=== PATIENT | male | born 1955 | race African-American/Black ===

== ENCOUNTER 2017-01-22 22:48 | Day surgery (SDC) | payer MEDICARE ==
[2017-01-23] MEDS ORDERED: Fentanyl 100 MCG/2 ML VIAL ONE (03:55)
[2017-01-23] MEDS ORDERED: Propofol 200 MG/20 ML VIAL ONE (04:08)
--- NOTE | 2017-01-23 05:02 | OP ---
DATE OF PROCEDURE: 01/23/2017 PROCEDURE: Esophagogastroduodenoscopy with removal of foreign body and biopsy and esophageal balloo n dilation. PREOPERATIVE DIAGNOSIS: Esophageal foreign body. OPERATIVE NOTE: Informed consent was obtained from the patient. He was sedated with total intraven ous anesthesia. The bite block was placed and the endoscope was advanced easily to the second porti on of the duodenum and retroflexion was performed in the stomach, had an impaction of meat in the di stal esophagus. Gentle pressure was applied with the scope and a bolus could be advanced into the s tomach. The esophagus had a stricture at the Z-line. This was dilated to 18 mm with a balloon dila tor. There was a shallow tear at the dilation site. There was an 8 to 9 mm ulcer few millimeters a brandy the stricture. This ulcer was biopsied to rule out a squamous cell carcinoma; however, it appe ars just be an ulcer. The stomach was normal including retroflexed views. The pylorus and first an d second portions of the duodenum were normal. IMPRESSION: 1. Esophageal food impaction advanced into the stomach with the endoscope. 2. Esophageal stricture dilated to 18 mm with a balloon. There was a shallow tear at the dilation site. 3. An 8 mm ulcer few millimeters above the stricture. This was biopsied to rule out squamous cell carcinoma. RECOMMENDATIONS: 1. Await histopathology. 2. Start omeprazole 20 mg daily. 3. Follow up in the office in 4 weeks.
--- NOTE | 2017-01-23 13:22 | CON ---
DATE OF CONSULTATION: 01/23/2017 GASTROENTEROLOGY ER CONSULTATION CHIEF COMPLAINT: Food stuck in my esophagus. HISTORY OF PRESENT ILLNESS: Mr. Hoffmann is a 61-year-old man who ate steak around 08:45 on the ev ening of 01/22/2017. The food got stuck in his esophagus and he is unable to tolerate his secretion s since then and he spits them onto a bag. He has had no chest pain or shortness of breath otherwis e. No abdominal pain, nausea, vomiting, diarrhea, constipation or blood in the stool. He gets dysp hagia occasionally around once every 6 months with which he can drink fluids to wash the bolus down. He has never had a food impaction like this. PAST MEDICAL HISTORY: Diabetes mellitus on insulin and Pompe disease, for which he has a home venti lator for respiratory weakness. PAST SURGICAL HISTORY: Tracheostomy is in place. FAMILY HISTORY: Negative for GI malignancies. SOCIAL HISTORY: No alcohol, tobacco or drugs. ALLERGIES: BACTRIM. MEDICATIONS AT HOME: Insulin. REVIEW OF SYSTEMS: Negative x10 systems reviewed except as stated in the history of present illness . PHYSICAL EXAMINATION: GENERAL: He is in no acute distress. He is awake and alert. EYES: Have no scleral icterus. OROPHARYNX: Clear without lesions. NECK: No cervical or supraclavicular lymphadenopathy. LUNGS: Have bilateral expiratory wheezes. HEART: Regular rate and rhythm. ABDOMEN: Soft, nontender, and nondistended. Bowel sounds are present. EXTREMITIES: No lower extremity edema. He has a tracheostomy in place with use of home ventilator. IMPRESSION: 1. Esophageal food impaction. 2. Pompe disease with muscle weakness. He has associated chronic respiratory failure with a trache ostomy in place and home ventilator use. PLAN: 1. EGD. 2. Start proton pump inhibitor daily.
--- OUTSIDE RECORDS SUMMARY | 2017-01-27 23:07 | XMS ---
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
--- OUTSIDE RECORDS SUMMARY | 2017-01-27 23:07 | XMS ---
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
--- OUTSIDE RECORDS SUMMARY | 2017-01-27 23:07 | XMS | Summary of Care ---
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 Refills:0 Active GlipiZIDE 5 MG Oral Tablet TAKE 1 TABLET TWICE DAILY. Refills:0 Active Albuterol Sulfate NEBU Refills:0 Active Lisinopril 5 MG Oral Tablet TAKE 1 TABLET DAILY DIRECTED. Quantity:30 Refills:5 BANSALM.D., MALLORIE Start :23-Jan-2014 Active Ipratropium-Albuterol 0.5-2.5 (3) MG/3ML Inhalation Solution Refills:0 Active Allergies and Adverse Reactions Name Dates Details Bactrim DS TABS(Allergy) Status:Active Procedures Procedure Dates Details [QLH] CBC (INCLUDES DIFF/PLT) Date:17-Dec-2016 [Q] CK-MB Date:17-Dec-2016 [QLH] PREALBUMIN Date:17-Dec-2016 [QLH] VITAMIN D, 1,25 DIHYDROXY LC/MS/MS Date:17-Dec-2016 [Q] PTH, INTACT (ICMA) AND IONIZED CALCIUM Date:17-Dec-2016 [QLH] PHOSPHATE ( PHOSPHORUS) Date:17-Dec-2016 [QLH] B TYPE NATRIURETIC PEPTIDE (BNP) Date:17-Dec-2016 [QLH] CMP W/EGFR Date:17-Dec-2016 [QLH] CREATINE KINASE, TOTAL Date:17-Dec-2016 [QLH] AMINO ACID ANALYSIS, LC/MS, PLASMA Date:17-Dec-2016 [QLH] VITAMIN D, 25-HYDROXY, LC/MS/MS Date:17-Dec-2016 [QLH] MAGNESIUM Date:17-Dec-2016 [QL] CARNITINE, LC/MS/MS Date:17-Dec-2016 Immunization Name Dates Details Immunizations not documented Social History Name Dates Details - Status: Name Dates Details Never smoker Vital Signs Date Test Result Details [id number] BP Systolic 146mm[Hg] Status:Comments:Location: [facility]; Position: Sitting BP Diastolic 83mm[Hg] Status:Comments:Location: [facility]; Position: Sitting Height 177.8cm Status: Weight 89.81kg Status: Body Mass Index Calculated 28.41kg/m2 Status: Body Surface Area Calculated 2.08m2 Status: Heart Rate 90/min Status:Comments:Location: [facility]; Results Date Description Value Details Results not documented Plan of Care Name Dates Details Planned Observations Planned Goals not documented Instructions Name Dates Details Instructions not documented Encounters Appointment; HOLDEN JULIO M.D. On:14-Aug-2015 9:30 Encounter Diagnosis:Problem not documented Appointment; YUNG GOMEZ M.D. On:15-Oct-2015 10:00 Encounter Diagnosis:Problem not documented Appointment; YUNG GOMEZ M.D. On:17-Dec-2015 10:00 Encounter Diagnosis:Problem not documented Appointment; YUNG GOMEZ M.D. On:22-Dec-2016 10:30 Encounter Diagnosis:Problem not documented
--- OUTSIDE RECORDS SUMMARY | 2017-01-27 23:07 | XMS | Summary of Care ---
:1955 Author Name Karma Terry Address Unavailable Unavailable , Care Team Providers Name Role Phone Harrison, Karma Unavailable Unavailable YUNG GOMEZ Unavailable Unavailable SONIA, MALLORIE Unavailable [...] 0.5-2.5 (3) MG/3ML Inhalation Solution Refills:0 Active Vitamin D3 92345 UNIT Oral Capsule Give one capsule by mouth, once a week for six weeks and then maintenance dosages of 2000 iu qday Quantity:6 Refills:11 YUNG BEAUCHAMP Start :29-Dec-2016 Active Allergies and Adverse Reactions Name Dates [...] smoker Vital Signs Date Test Result Details [id number] BP Systolic 146mm[Hg] Status:Comments:Location: [facility]; Position: Sitting BP Diastolic 83mm[Hg] Status:Comments:Location: [facility]; Position: Sitting Height 177.8cm Status: Weight 89.81kg Status: Body Mass Index Calculated 28.41kg/m2 Status: Body Surface Area Calculated 2.08m2 Status: Heart Rate 90/min Status:Comments:Location: [facility]; Results Date Description Value Details [id number] [QLH] CALCIUM, IONIZED Ca Ion Serum 1.25 mmol/L Range:1.00-1.38 Ca Norm Serum 1.22 mmol/L Range:1.00-1.38 [id number] [QLH] CBC (INCLUDES DIFF/PLT) WBC 7.6 {K/CMM} Range:3.7-10.4 RBC 5.26 {M/CMM} Range:4.70-6.10 Hgb 14.2 g/dl Range:14.0-18.0 Hct 43.0 % Range:42.0-54.0 MCV 81.8 fL Range:80.0-94.0 MCH 27.1 pg Range:27.0-31.0 MCHC 33.1 g/dl Range:32.0-36.0 RDW 15.8 % (Above high threshold) Range:11.5-14.5 Platelet 236 {K/CMM} Range:133-450 Mean Platelet Volume 9.6 fL Range:7.4-10.4 :31 [QLH] Differential Segmented Neutrophils 72.1 % Range:45.0-75.0 Monocytes 5.4 % Range:2.0-12.0 Lymphocytes 20.9 % Range:20.0-40.0 Eosinophils 1.0 % Range:0.0-4.0 Basophils 0.6 % Range:0.0-1.0 Segs-Bands # 5.5 {K/CMM} Range:1.5-8.1 Lymphocytes # 1.6 {K/CMM} Range:1.0-5.5 Monocytes # 0.4 {K/CMM} Range:0.0-0.8 Eosinophils # 0.1 {K/CMM} Range:0.0-0.5 [id number] [[facility]] CMP W/EGFR Sodium Level 137 {mEq/l} Range:135-145 Potassium Level 4.3 {mEq/l} Range:3.5-5.1 Chloride Level 103 {mEq/l} Range:95-109 Carbon Dioxide 26 {mEq/l} Range:24-32 AGAP 12.3 {mEq/l} Range:10.0-20.0 Glucose Lvl 273 mg/dl (Above high Range:70-99 threshold) Comments:Adult reference range values reflect the clinical guidelinesof the [place] [employer] Association. Creatinine Lvl 0.90 mg/dl Range:0.50-1.40 Blood Urea Nitrogen 14 mg/dl Range:7-22 BUN/Creatinine Ratio 16 Range:6-25 Total Protein 8.6 g/dl (Above high Range:6.4-8.4 threshold) Albumin Lvl 4.1 g/dl Range:3.5-5.0 Globulin 4.5 g/dl (Above high Range:2.7-4.2 threshold) A/G Ratio 0.9 Range:0.7-1.6 Calcium Level Total 9.4 mg/dl Range:8.5-10.5 ALT 34 u/l Range:0-65 AST 29 u/l Range:0-37 Alk Phos 98 u/l Range:39-136 Bili Total 0.4 mg/dl Range:0.2-1.3 eGFR 107 {ML/MIN/1.7} Comments:The eGFR is calculated using the CKD-EPI formula. In most young, healthyindividuals the eGFR will be >90 mL/min/1.73m2. The eGFR declines with age. AneGFR of 60-89 may be normal in some populations , particularly the elderly, forwhom the CKD-EPI formula has not been extensively validated. Use of the eGFR isnot recommended in the following populations:Individuals with unstable creatinine concentr ations, including patients and those with serious co-morbid conditions.Patients with extremes in muscle mass or diet.The data above are obtained from the National Kidney Disease Education Prog manuel(NKDEP) which additionally recommends that when the eGFR is used in patientswith extremes of body mass index for purposes of drug dosing, the eGFR shouldbe multiplied by the estimated BMI. [QLH] CREATINE KINASE, TOTAL Creatine Kinase 530 u/l (Above high threshold) Range:12-191 [QLH] MAGNESIUM Magnesium Level 2.2 mg/dl Range:1.8-2.4 [QLH] PHOSPHATE ( PHOSPHORUS) Phosphorus Level 2.2 mg/dl (Below low threshold) Range:2.5-4.5 [H] CK-MB Isoenzyme Creatine Kinase MB 10.9 ng/ml (Above high threshold) Range:0.5-3.6 [LH] CK-MB Index Creatine Kinase MB Index 2.1 Range:0.0-2.5 [QLH] PREALBUMIN Prealbumin 21.0 mg/dl Range:18.0-45.0 [QLH] PTH, INTACT (WITHOUT CALCIUM) Parathyroid Hormone Intact 89.8 pg/ml (Above high threshold) Range:11.1- 79.5 [QLH] B TYPE NATRIURETIC PEPTIDE (BNP) Natriuretic Peptide <2 pg/ml Range:<=100 Comments:Elevated results are in line with increasing severity ofcongestive heart failure. Minor elevations between 100 and 300may be seen with Myocardial Ischemia, Sodium retaining drugs,and compensated/treated heart failure. [QLH] VITAMIN D, 25-HYDROXY, LC/MS/MS Vitamin D, 25-OH, 12.8 ng/ml (Below low Range:30.0-100.0 Total threshold) Comments:Reference range is based on recommendations in the EndocrineSociety Clinical Practice Guideline (J Clin Endocrinol Oikvn0605;96 :6926-5641) [id number] [QLH] VITAMIN D, 1,25 DIHYDROXY LC/MS/MS Vitamin D 1,25 (OH)2 Total 76 pg/ml Comments:Reference Range:Adults: 21 - 65 Vitamin D2 1,25 (OH)2 59 pg/ml Vitamin D3 1,25 (OH)2 17 pg/ml Comments:Performed At: [facility] [address] [place] [id number] Samuel H MD Ph:[phone] [id number] [H] Amino Acids Plasma Taurine AA 162.0 umol/L (Above high Range:29.2-132.3 threshold) Aspartate 5.0 umol/L Range:0.9-7.4 Hydroxyproline 24.5 umol/L Range:4.7-35.2 Threonine 97.8 umol/L Range:67.8-211.6 Serine 93.6 umol/L Range:48.7-145.2 Asparagine 40.7 umol/L Range:29.5-84.5 Glutamic Acid 148.4 umol/L Range:18.1-155.9 Glutamine 420.1 umol/L Range:332.0-754.0 Sarcosine 1.1 umol/L Range:0.0-4.0 Alpha-Amino Adipic Acid 1.4 umol/L Range:0.0-2.2 Proline 199.5 umol/L Range:84.8-352.5 Glycine Amino Acid 197.5 umol/L Range:132.0-467.0 Alanine 361.5 umol/L Range:124.8-564.2 Citrulline Amino Acid 31.0 umol/L Range:13.7-63.2 Alpha-Amino Butyric Acid 21.1 umol/L Range:5.4-34.5 Valine AA 219.3 umol/L Range:102.6-345.4 Cystine 32.8 umol/L Range:13.5-60.2 Methionine 23.8 umol/L Range:12.7-41.1 Homocitrulline <0.5 umol/L Range:0.0-1.7 Cystathionine 0.2 umol/L Range:0.0-0.7 Allo-isoleucine 1.7 umol/L Range:0.4-3.2 Isoleucine 55.0 umol/L Range:27.7-112.8 Leucine 109.5 umol/L Range:54.9-205.0 Tyrosine Amino Acid 48.2 umol/L Range:31.1-118.1 Phenylalanine 56.5 umol/L Range:33.6-101.9 Arginosuccin 0.1 umol/L Range:0.0-3.0 Beta-alanine 5.6 umol/L Range:1.1-9.0 Beta-Amino Isobutyric Acid 2.3 umol/L Range:0.3-4.3 Homocystine <0.1 umol/L Range:0.0-0.1 Gamma-Amino Butyric Acid <0.4 umol/L Range:0.0-0.3 Tryptophan 35.6 umol/L Range:23.5-93.0 Hydroxylysine 0.2 umol/L Range:0.1-0.8 Ornithine 60.8 umol/L Range:30.5-131.4 Lysine 205.4 umol/L Range:94.0-278.0 Histidine 66.1 umol/L Range:47.2-98.5 Arginine 70.2 umol/L Range:32.0-150.0 AA Interp Comment Comments:No evidence of aminoacidopathy by quantitative plasma aminoacid analysis. Director Review (AA Plasma) Comment Comments:Tia Ga, PhD, FACMGDirector, Biochemical and Molecular GeneticsTo discuss these results or other testing for inborn errorsof metabolism, please contact our Biochemical Geneticistsat [phone]), [facility] Customer Service,[place], [place]. Methodology (AA Plasma) Comment Comments:Amino acid concentrations were obtained by LC-MS/MSanalysis.Performed At: [facility] [id number] [place], [place] [id number] Crystal MD Ph:[phone] At: [facility] [id number] [place], [place] [id number] Avilez MD Ph: [phone] Plan of Care Name Dates Details Planned Observations Planned Goals not documented Planned Encounters Appointment; YUNG GOMEZ M.D. On:21-Dec-2017 9:00 Interventions Provided Medication ChangesVitamin D3 02154 UNIT Oral Capsule - Start Instructions Name Dates Details Instructions not documented Encounters Appointment; HOLDEN JULIO M.D. On:14-Aug-2015 9:30 Encounter Diagnosis:Problem not documented Appointment; YUNG GOMEZ M.D. On:15-Oct-2015 10:00 Encounter Diagnosis:Problem not documented Appointment; YUNG GOMEZ M.D. On:17-Dec-2015 10:00 Encounter Diagnosis:Problem not documented Appointment; YUNG GOMEZ M.D. On:22-Dec-2016 10:30 Encounter Diagnosis:Problem not documented
--- OUTSIDE RECORDS SUMMARY | 2017-01-27 23:07 | XMS | Summary of Care ---
:1955 Author Name PATRICIA, HOPE Address [facility] Unavailable , Care Team [...] 1 TABLET TWICE DAILY WITH FOOD. Refills:0 R.N.Active GlipiZIDE 5 MG Oral Tablet TAKE 1 TABLET TWICE DAILY. Refills:0 R.N.Active Albuterol Sulfate NEBU Refills:0 R.N.Active Lisinopril 5 MG Oral Tablet TAKE 1 TABLET DAILY DIRECTED. Quantity:30 Refills:5 BANSALM.D., MALLORIE Start :23-Jan-2014 Active Ipratropium-Albuterol 0.5-2.5 (3) MG/3ML Inhalation Solution Refills:0 R.N.Active Vitamin D3 50016 UNIT Oral Capsule Give one capsule by mouth, once a week for six weeks and then maintenance dosages of 2000 iu qday Quantity:6 Refills:11 YUGN BEAUCHAMP Start :29-Dec-2016 Active Allergies and Adverse Reactions Name Dates Details Bactrim DS TABS(Allergy) Status:Active Procedures Procedure Dates Details [QLH] CBC (INCLUDES DIFF/PLT) Date:17-Dec-2016 [Q] CK-MB Date:17-Dec-2016 [QLH] PREALBUMIN Date:17-Dec-2016 [QLH] VITAMIN D, 1,25 DIHYDROXY LC/MS/MS Date:17-Dec-2016 [Q] PTH, INTACT (ICMA) AND IONIZED CALCIUM Date:17-Dec-2016 [QLH] PHOSPHATE ( PHOSPHORUS) Date:17-Dec-2016 [QLH] B TYPE NATRIURETIC PEPTIDE (BNP) Date:17-Dec-2016 [QLH] CMP W/EGFR Date:29-Dec-2016 [QLH] CREATINE KINASE, TOTAL Date:29-Dec-2016 [QLH] AMINO ACID ANALYSIS, LC/MS, PLASMA Date:29-Dec-2016 [Q] PTH, INTACT (ICMA) AND IONIZED CALCIUM Date:29-Dec-2016 [QLH] PHOSPHATE ( PHOSPHORUS) Date:29-Dec-2016 [QLH] B TYPE NATRIURETIC PEPTIDE (BNP) Date:29-Dec-2016 [QLH] CMP W/EGFR Date:17-Dec-2016 [QLH] CREATINE KINASE, TOTAL Date:17-Dec-2016 [QLH] AMINO ACID ANALYSIS, LC/MS, PLASMA Date:17-Dec-2016 [QLH] VITAMIN D, 25-HYDROXY, LC/MS/MS Date:17-Dec-2016 [QLH] MAGNESIUM Date:17-Dec-2016 [QL] CARNITINE, LC/MS/MS Date:17-Dec-2016 [QLH] CBC (INCLUDES DIFF/PLT) Date:29-Dec-2016 [Q] CK-MB Date:29-Dec-2016 [QLH] PREALBUMIN Date:29-Dec-2016 [QL] VITAMIN D, 25 HYDROXY AND 1,25 DIHYDROXY, LC/MS/MS Date:29-Dec-2016 [QLH] MAGNESIUM Date:29-Dec-2016 [QL] CARNITINE, LC/MS/MS Date:29-Dec-2016 Immunization Name Dates Details Immunizations not documented Social History Name Dates Details - Status: Name Dates Details Never smoker Vital Signs Date Test Result Details [id number] BP Systolic 146mm[Hg] Status:Comments:Location: [facility]; Position: Sitting BP Diastolic 83mm[Hg] Status:Comments:Location: [facility]; Position: Sitting Height 177.8cm Status: Weight 89.81kg Status: Body Mass Index Calculated 28.41kg/m2 Status: Body Surface Area Calculated 2.08m2 Status: Heart Rate 90/min Status:Comments:Location: [facility]; Results Date Description Value Details [id number] [QLH] CALCIUM, IONIZED Ca Ion Serum 1.25 mmol/L Range:1.00-1.38 Ca Norm Serum 1.22 mmol/L Range:1.00-1.38 :31 [QL] CBC (INCLUDES DIFF/PLT) WBC 7.6 {K/CMM} Range:3.7-10.4 RBC 5.26 {M/CMM} Range:4.70-6.10 Hgb 14.2 g/dl Range:14.0-18.0 Hct 43.0 % Range:42.0-54.0 MCV 81.8 fL Range:80.0-94.0 MCH 27.1 pg Range:27.0-31.0 MCHC 33.1 g/dl Range:32.0-36.0 RDW 15.8 % (Above high threshold) Range:11.5-14.5 Platelet 236 {K/CMM} Range:133-450 Mean Platelet Volume 9.6 fL Range:7.4-10.4 :31 [QL] Differential Segmented Neutrophils 72.1 % Range:45.0-75.0 Monocytes 5.4 % Range:2.0-12.0 Lymphocytes 20.9 % Range:20.0-40.0 Eosinophils 1.0 % Range:0.0-4.0 Basophils 0.6 % Range:0.0-1.0 Segs-Bands # 5.5 {K/CMM} Range:1.5-8.1 Lymphocytes # 1.6 {K/CMM} Range:1.0-5.5 Monocytes # 0.4 {K/CMM} Range:0.0-0.8 Eosinophils # 0.1 {K/CMM} Range:0.0-0.5 :17 [QL] CMP W/EGFR Sodium Level 137 {mEq/l} Range:135-145 Potassium Level 4.3 {mEq/l} Range:3.5-5.1 Chloride Level 103 {mEq/l} Range:95-109 Carbon Dioxide 26 {mEq/l} Range:24-32 AGAP 12.3 {mEq/l} Range:10.0-20.0 Glucose Lvl 273 mg/dl (Above high Range:70-99 threshold) Comments:Adult reference range values reflect the clinical guidelinesof the [place] [employer]. Creatinine Lvl 0.90 mg/dl Range:0.50-1.40 [...] Index Creatine Kinase MB Index 2.1 Range:0.0-2.5 :17 [QLH] PREALBUMIN Prealbumin 21.0 mg/dl Range:18.0-45.0 :31 [QLH] PTH, INTACT (WITHOUT CALCIUM) Parathyroid Hormone Intact 89.8 pg/ml (Above high threshold) Range:11.1- 79.5 :31 [QLH] B TYPE NATRIURETIC PEPTIDE (BNP) Natriuretic Peptide <2 pg/ml Range:<=100 Comments:Elevated results are in line with increasing severity ofcongestive heart failure. Minor elevations between 100 and 300may be seen with Myocardial Ischemia, Sodium retaining drugs,and compensated/treated heart failure. :22 [QLH] VITAMIN D, 25-HYDROXY, LC/MS/MS Vitamin D, 25-OH, 12.8 ng/ml (Below low Range:30.0-100.0 Total threshold) Comments:Reference range is based on recommendations in the EndocrineSociety Clinical Practice Guideline (J Clin Endocrinol Lcrhh6666;96 :1484-7820) :42 [QLH] VITAMIN D, 1,25 DIHYDROXY LC/MS/MS Vitamin D 1,25 (OH)2 Total 76 pg/ml Comments:Reference Range:Adults: 21 - 65 Vitamin D2 1,25 (OH)2 59 pg/ml Vitamin D3 1,25 (OH)2 17 pg/ml Comments:Performed At: [facility] [address] [place] [id number] Samuel H MD Ph:[phone] :42 [H] Amino Acids Plasma Taurine AA 162.0 [...] errorsof metabolism, please contact our Biochemical Geneticistsat [phone] [employer] [facility],[place], [place]. Methodology (AA Plasma) Comment Comments:Amino acid concentrations were obtained by LC-MS/MSanalysis.Performed At: [address] [id number] Crystal MD Ph:[phone] At: [facility] [id number] [place], [place] [id number] Avilez MD Ph: [phone] [id number] [H] Carnitine Free and Total Carnitine Total 39 umol/L Range:26-80 Carnitine Fr 27 umol/L Range:18-62 Aclycarnitine Fraction 12 umol/L Range:4-24 Aclycarnitine Fact/Free Ratio 0.4 Range:0.1-0.7 Carnitine Interp Comment: Comments:Plasma carnitine concentrations are within reference limits. Carnitine Umbrella Supervisor Sig Comment: Comments:Qi Orozco ph. D., [facility]- Director, Biochemical Genetics LabTel: , Fax; [phone] Carnitine Comments Comment Comments:Method: Tandem mass spectrometryBiochemical test results depend in part on the clinicaland dietary status at the time of specimen collection. Anormal or non-diagnostic test result does not rule out th epossibility of an underlying metabolic disorder, includingthat for which the test was requested. This test wasdeveloped and its performance characteristicsdetermined by the [facility] Biochemical Genetics L aboratory. Ithas not been cleared or approved by the FDA. The laboratoryis regulated under CLIA as qualified to perform high-complexity testing. This test is used for clinicalpurposes. It should not b e regarded as investigational orfor research.Performed At: [facility] [address] [place], [place] [id number] Santana Talbot MD Ph: [phone] At: T[address] [facility] Biochemical Genetics [id number] [place], [place] [id number] Dwight [facility] Ph:[phone] Plan of Care Name Dates Details Planned Observations Planned Goals not documented Planned Encounters Appointment; YUNG GOMEZ M.D. On:21-Dec-2017 9:00 Instructions Name Dates Details Instructions not documented Encounters Appointment; HOLDEN JULIO M.D. On:14-Aug-2015 9:30 Encounter Diagnosis:Problem not documented Appointment; YUNG GOMEZ M.D. On:15-Oct-2015 10:00 Encounter Diagnosis:Problem not documented Appointment; YUNG GOMEZ M.D. On:17-Dec-2015 10:00 Encounter Diagnosis:Problem not documented Appointment; YUNG GOMEZ M.D. On:22-Dec-2016 10:30 Encounter Diagnosis:Problem not documented
--- OUTSIDE RECORDS SUMMARY | 2017-01-27 23:07 | XMS ---
:1955 Author Organization eClinicalWorks Care Team Providers Name Role Phone Linda Mccullough Provider Role Unavailable Allergies, Adverse Reactions, Alerts Substance Reaction Event Type Bactrim Info Not Available Drug Allergy Problems Problem Type Condition Code Onset Dates Condition Status Problem Other tracheostomy complication J95.09 Active Problem Respiratory failure, unspecified J96.91 Active with hypoxia Problem Encounter for attention to Z43.0 Active tracheostomy Assessment Tracheostomy status V44.0 Active Problem Tracheostomy status V44.0 Active Assessment Encounter for attention to Z43.0 Active tracheostomy Medications Medication Code Code Instructions Start End Date Status Dosage System Date Metformin HCl [facility] 21162-75 500 MG Orally Active 1 tablet 48-01 Twice a day with meals NovoLog [facility] 90324-66 Active not defined - Lantus [facility] 15434-91 Active not defined 20-33 Ipratropium [facility] 06949-07 Active not defined [place] 46-41 Albuterol ND 0 Active not defined Results No Known Results Summary Purpose [facility] Submission
--- OUTSIDE RECORDS SUMMARY | 2017-01-27 23:07 | XMS | Summary of Care ---
:1955 Author Name Karma Terry Address Unavailable Unavailable , Care Team Providers Name Role Phone Harrison, Karma Unavailable Unavailable SONIA, MALLORIE Unavailable Unavailable , [...] smoker Vital Signs Date Test Result Details No Known Vitals to report Results Date Description Value Details Results not documented Plan of Care Name Dates Details Planned Observations Planned Goals not documented Planned Encounters Appointment; YUNG GOMEZ M.D. On:22-Dec-2016 10:30 Interventions Provided Labs/Procedures/Imaging[Q] CK-MB; To Be Done: 17 Dec 2016[Q] PTH, INTACT (ICMA) AND IONIZED CALCIUM; To Be Done: 17 Dec 2016[QL] CARNITINE, LC/MS/MS; To Be Done : 17 Dec 2016[QLH] AMINO ACID ANALYSIS, LC/MS, PLASMA; To Be Done: 17 Dec 2016[ QLH] B TYPE NATRIURETIC PEPTIDE (BNP); To Be Done: 17 Dec 2016[QLH] CBC ( INCLUDES DIFF/PLT); To Be Done: 17 Dec 2016[QLH] CMP W/EGFR; To Be Done: 17 Dec 2016[QLH] CREATINE KINASE, TOTAL; To Be Done: 17 Dec 2016[QLH] MAGNESIUM; To Be Done: 17 Dec 2016[QLH] PHOSPHATE ( PHOSPHORUS); To Be Done: 17 Dec 2016[QLH] PREALBUMIN; To Be Done: 17 Dec 2016[QLH] VITAMIN D, 1,25 DIHYDROXY LC/MS/MS; To Be Done: 17 Dec 2016[QLH] VITAMIN D, 25-HYDROXY, LC/MS/MS; To Be Done: 17 Dec 2016 Instructions Name Dates Details Instructions not documented Encounters Appointment; HOLDEN JULIO M.D. On:14-Aug-2015 9:30 Encounter Diagnosis:Problem not documented Appointment; YUNG GOMEZ M.D. On:15-Oct-2015 10:00 Encounter Diagnosis:Problem not documented Appointment; YUNG GOMEZ M.D. On:17-Dec-2015 10:00 Encounter Diagnosis:Problem not documented
--- OUTSIDE RECORDS SUMMARY | 2017-01-27 23:07 | XMS | Summary of Care ---
[...] smoker Vital Signs Date Test Result Details 67-Elc-338654:19 BP Systolic 146mm[Hg] Status:Comments:Location: RUE; Position: Sitting BP Diastolic 83mm[Hg] Status:Comments:Location: RUE; Position: Sitting Height 177.8cm Status: Weight 89.81kg Status: Body Mass Index Calculated 28.41kg/m2 Status: Body Surface Area Calculated 2.08m2 Status: Heart Rate 90/min Status:Comments:Location: R Radial; Results Date Description Value Details Results not documented Plan of Care Name Dates Details Planned Observations [QLH] CBC (INCLUDES DIFF/PLT) Intent Comments:After 09Yid0948 [QLH] CMP W/EGFR Intent Comments:After 16Knn3371 [Q] CK-MB Intent Comments:After 16Fcu6224 [QLH] CREATINE KINASE, TOTAL Intent Comments:After 37Kol8764 [QLH] PREALBUMIN Intent Comments:After 36Mga2310 [QLH] AMINO ACID ANALYSIS, LC/MS, PLASMA Intent Comments:After 09Pew9745 [QLH] VITAMIN D, 1,25 DIHYDROXY LC/MS/MS Intent Comments:After 25Osi6096 [QLH] VITAMIN D, 25-HYDROXY, LC/MS/MS Intent Comments:After 67Qzh7490 [Q] PTH, INTACT (ICMA) AND IONIZED CALCIUM Intent Comments:After 42Dlb0978 [QLH] MAGNESIUM Intent Comments:After 69Bdd4352 [QLH] PHOSPHATE ( PHOSPHORUS) Intent Comments:After 04Ewa5323 [QL] CARNITINE, LC/MS/MS Intent Comments:After 55Yws4212 [QLH] B TYPE NATRIURETIC PEPTIDE (BNP) Intent Comments:After 04Mhr9218 Planned Goals not documented Instructions Name Dates Details Instructions not documented Encounters Appointment; HOLDEN JULIO M.D. On:14-Aug-2015 9:30 Encounter Diagnosis:Problem not documented Appointment; YUNG GOMEZ M.D. On:15-Oct-2015 10:00 Encounter Diagnosis:Problem not documented Appointment; YUNG GOMEZ M.D. On:17-Dec-2015 10:00 Encounter Diagnosis:Problem not documented Appointment; YUNG GOMEZ M.D. On:22-Dec-2016 10:30 Encounter Diagnosis:Problem not documented
--- OUTSIDE RECORDS SUMMARY | 2017-01-27 23:07 | XMS ---
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
--- OUTSIDE RECORDS SUMMARY | 2017-01-27 23:07 | XMS | Summary of Care ---
:1955 Author Name YUNG GOMEZ Address [facility] Unavailable , Care Team [...] TABS(Allergy) Status:Active Procedures Procedure Dates Details [QLH] CMP W/EGFR Date:17-Dec-2016 [QLH] CREATINE KINASE, TOTAL Date:17-Dec-2016 [QLH] AMINO ACID ANALYSIS, LC/MS, PLASMA Date:17-Dec-2016 [QLH] VITAMIN D, 25-HYDROXY, LC/MS/MS Date:17-Dec-2016 [QLH] MAGNESIUM Date:17-Dec-2016 [QL] CARNITINE, LC/MS/MS Date:17-Dec-2016 [QLH] CBC (INCLUDES DIFF/PLT) Date:17-Dec-2016 [Q] CK-MB Date:17-Dec-2016 [QLH] PREALBUMIN Date:17-Dec-2016 [QLH] VITAMIN D, 1,25 DIHYDROXY LC/MS/MS Date:17-Dec-2016 [Q] PTH, INTACT (ICMA) AND IONIZED CALCIUM Date:17-Dec-2016 [QLH] PHOSPHATE ( PHOSPHORUS) Date:17-Dec-2016 [QLH] B TYPE NATRIURETIC PEPTIDE (BNP) Date:17-Dec-2016 Immunization Name Dates Details Immunizations not documented Social History Name Dates Details - Status: Name Dates Details Never smoker Vital Signs Date Test Result Details 63-Vkc-006782:19 BP Systolic 146mm[Hg] Status:Comments:Location: RUE; Position: Sitting BP Diastolic 83mm[Hg] Status:Comments:Location: RUE; Position: Sitting Height 177.8cm Status: Weight 89.81kg Status: Body Mass Index Calculated 28.41kg/m2 Status: Body Surface Area Calculated 2.08m2 Status: Heart Rate 90/min Status:Comments:Location: R Radial; Results Date Description Value Details 49-Yei-[id number]:32 [QLH] CALCIUM, IONIZED Ca Ion Serum 1.25 mmol/L Range:1.00-1.38 Ca Norm Serum 1.22 mmol/L Range:1.00-1.38 :31 [QLH] CBC (INCLUDES DIFF/PLT) WBC 7.6 {K/CMM} [...] {K/CMM} Range:0.0-0.8 Eosinophils # 0.1 {K/CMM} Range:0.0-0.5 72-Qtl-733215:17 [[facility]] CMP W/EGFR Sodium Level 137 {mEq/l} Range:135-145 Potassium Level 4.3 {mEq/l} Range:3.5-5.1 Chloride Level 103 {mEq/l} Range:95-109 Carbon Dioxide 26 {mEq/l} Range:24-32 AGAP 12.3 {mEq/l} Range:10.0-20.0 Glucose Lvl 273 mg/dl (Above high Range:70-99 threshold) Comments:Adult reference range values reflect the clinical guidelinesof the [place] Diabetes [employer]. Creatinine Lvl 0.90 mg/dl Range:0.50-1.40 [...] eGFR shouldbe multiplied by the estimated BMI. :17 [QLH] CREATINE KINASE, TOTAL Creatine Kinase 530 u/l (Above high threshold) Range:12-191 : [QLH] MAGNESIUM Magnesium Level 2.2 mg/dl Range:1.8-2.4 : [QLH] PHOSPHATE ( PHOSPHORUS) Phosphorus Level 2.2 mg/dl (Below low threshold) Range:2.5-4.5 : [H] CK-MB Isoenzyme Creatine Kinase MB 10.9 ng/ml (Above high threshold) Range:0.5-3.6 [LH] CK-MB Index Creatine Kinase MB Index 2.1 Range:0.0-2.5 : [QLH] PREALBUMIN Prealbumin 21.0 mg/dl Range:18.0-45.0 :31 [...] EndocrineSociety Clinical Practice Guideline (J Clin Endocrinol [id number];96 :6199-9942) :42 [QLH] VITAMIN D, 1,25 DIHYDROXY LC/MS/MS Vitamin D 1,25 (OH)2 Total 76 pg/ml Comments:Reference Range:Adults: 21 - 65 Vitamin D2 1,25 (OH)2 59 pg/ml Vitamin D3 1,25 (OH)2 17 pg/ml Comments:Performed At: [facility] [address] [place] [address] [id number] Samuel H MD Ph:[phone] 30-Bup-724112:42 [H] Amino Acids Plasma Taurine AA 162.0 [...] errorsof metabolism, please contact our Biochemical Geneticistsat [phone]), [facility] [employer] Customer Service,[place], [place]. Methodology (AA Plasma) Comment Comments:Amino acid concentrations were obtained by LC-MS/MSanalysis.Performed At: [facility] [place], [place] [id number] Crystal MD Ph:[phone] At: [facility] [address] [place], [place] [id number] Avilez MD Ph: [phone] Plan of Care Name Dates Details Planned Observations [QLH] CBC (INCLUDES DIFF/PLT) Intent Comments:After 61Dtn3766 [QLH] CMP W/EGFR Intent Comments:After 69Goo2791 [Q] CK-MB Intent Comments:After 18Lvy2441 [QLH] CREATINE KINASE, TOTAL Intent Comments:After 49Oth5999 [QLH] PREALBUMIN Intent Comments:After 76Osz3655 [QLH] AMINO ACID ANALYSIS, LC/MS, PLASMA Intent Comments:After 55Rdx8494 [QLH] VITAMIN D, 1,25 DIHYDROXY LC/MS/MS Intent Comments:After 39Vqc7245 [QLH] VITAMIN D, 25-HYDROXY, LC/MS/MS Intent Comments:After 76Rbo0859 [Q] PTH, INTACT (ICMA) AND IONIZED CALCIUM Intent Comments:After 93Vsn4191 [QLH] MAGNESIUM Intent Comments:After 07Bil2331 [QLH] PHOSPHATE ( PHOSPHORUS) Intent Comments:After 74Ksk3589 [QL] CARNITINE, LC/MS/MS Intent Comments:After 31Uaw1555 [QLH] B TYPE NATRIURETIC PEPTIDE (BNP) Intent Comments:After 22Rsy4890 Planned Goals not documented Planned Encounters Appointment; YUNG GOMEZ M.D. On:21-Dec-2017 9:00 Interventions Provided InstructionsPatient Specific Education Given; Done: 24 Dec 2016 Instructions Name Dates Details Instructions not documented Encounters Appointment; HOLDEN JULIO M.D. On:14-Aug-2015 9:30 Encounter Diagnosis:Problem not documented Appointment; YUNG GOEMZ M.D. On:15-Oct-2015 10:00 Encounter Diagnosis:Problem not documented Appointment; YUNG GOMEZ M.D. On:17-Dec-2015 10:00 Encounter Diagnosis:Problem not documented Appointment; YUNG GOMEZ M.D. On:22-Dec-2016 10:30 Encounter Diagnosis:Problem not documented
--- OUTSIDE RECORDS SUMMARY | 2017-01-27 23:07 | XMS ---
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 Assessment Tracheostomy status V44.0 Active Medications Medication Code Code Instructions Start End Date Status Dosage System Date NovoLog [facility] 26794-90 Active not defined 04-16 Albuterol ND 0 Active not defined Ipratropium [facility] 87657-21 Active not defined [place] 46-41 Lantus [facility] 17717-78 Active not defined 20-33 Metformin HCl [facility] 07930-79 500 MG Orally Active 1 tablet 48-01 Twice a day with meals Results No Known Results Summary Purpose eClinicalWorks Submission
--- OUTSIDE RECORDS SUMMARY | 2017-01-27 23:07 | XMS | Summary of Care ---
:1955 Author Name PATRICIA YUNG Address [facility] Unavailable , Care Team Providers Name Role Phone aKrma Terry Unavailable Unavailable PATRICIA CAPUTA Unavailable Unavailable SONIA, MALLORIE Unavailable Unavailable , [...] MG/3ML Inhalation Solution Refills:0 Active Vitamin D3 54767 UNIT Oral Capsule Give one capsule by [...] smoker Vital Signs Date Test Result Details 60-[id number]:19 BP Systolic 146mm[Hg] Status:Comments:Location: RUE; Position: Sitting BP Diastolic 83mm[Hg] Status:Comments:Location: RUE; Position: Sitting Height 177.8cm Status: Weight 89.81kg Status: Body Mass Index Calculated 28.41kg/m2 Status: Body Surface Area Calculated 2.08m2 Status: Heart Rate 90/min Status:Comments:Location: [facility]; Results Date Description Value Details 08-[id number]:32 [QLH] CALCIUM, IONIZED Ca Ion Serum 1.25 mmol/L Range:1.00-1.38 Ca Norm Serum 1.22 mmol/L Range:1.00-1.38 15-Vmg-223841:31 [QLH] CBC (INCLUDES DIFF/PLT) WBC 7.6 {K/CMM} [...] Range:0.0-0.8 Eosinophils # 0.1 {K/CMM} Range:0.0-0.5 :17 [QLH] CMP W/EGFR Sodium Level 137 {mEq/l} Range:135-145 Potassium Level 4.3 {mEq/l} Range:3.5-5.1 Chloride Level 103 {mEq/l} Range:95-109 Carbon Dioxide 26 {mEq/l} Range:24-32 AGAP 12.3 {mEq/l} Range:10.0-20.0 Glucose Lvl 273 mg/dl (Above high Range:70-99 threshold) Comments:Adult reference range values reflect the clinical guidelinesof the [place] Diabetes [employer]. Creatinine Lvl 0.90 mg/dl Range:0.50-1.40 [...] EndocrineSociety Clinical Practice Guideline (J Clin Endocrinol Wblct4596;96 :7835-9522) :42 [QLH] VITAMIN D, 1,25 DIHYDROXY LC/MS/MS Vitamin D 1,25 (OH)2 Total 76 pg/ml Comments:Reference Range:Adults: 21 - 65 Vitamin D2 1,25 (OH)2 59 pg/ml Vitamin D3 1,25 (OH)2 17 pg/ml Comments:Performed At: [facility] [address] [place] [address] [id number] Samuel H MD Ph:[phone] :42 [H] Amino Acids Plasma Taurine AA [...] errorsof metabolism, please contact our Biochemical Geneticistsat [phone]), [employer] Customer Service,[place], [place]. Methodology (AA Plasma) Comment Comments:Amino acid concentrations were obtained by LC-MS/MSanalysis.Performed At: [facility] [address] [place], [place] [id number] Crystal MD Ph:[phone] At: [facility] [address] [employer] [place], [place] [id number] Avilez MD Ph: [phone] Plan of Care Name Dates Details Planned Observations [QLH] CBC (INCLUDES DIFF/PLT) On:23-Mar-2017 Intent [QLH] CMP W/EGFR On:23-Mar-2017 Intent [Q] CK-MB On:23-Mar-2017 Intent [QLH] CREATINE KINASE, TOTAL On:23-Mar-2017 Intent [QLH] PREALBUMIN On:23-Mar-2017 Intent [QLH] AMINO ACID ANALYSIS, LC/MS, PLASMA On:23-Mar-2017 Intent [QL] VITAMIN D, 25 HYDROXY AND 1,25 DIHYDROXY, LC/MS/MS On:23-Mar-2017 Intent [Q] PTH, INTACT (ICMA) AND IONIZED CALCIUM On:23-Mar-2017 Intent [QLH] MAGNESIUM On:23-Mar-2017 Intent [QLH] PHOSPHATE ( PHOSPHORUS) On:23-Mar-2017 Intent [QL] CARNITINE, LC/MS/MS On:23-Mar-2017 Intent [QLH] B TYPE NATRIURETIC PEPTIDE (BNP) On:23-Mar-2017 Intent Planned Goals not documented Planned Encounters Appointment; YUNG GOMEZ M.D. On:21-Dec-2017 9:00 Interventions Provided Medication ChangesVitamin D3 03931 UNIT Oral Capsule - Start Instructions Name Dates Details Instructions not documented Encounters Appointment; HOLDEN JULIO M.D. On:14-Aug-2015 9:30 Encounter Diagnosis:Problem not documented Appointment; YUNG GOMEZ M.D. On:15-Oct-2015 10:00 Encounter Diagnosis:Problem not documented Appointment; YUNG GOMEZ M.D. On:17-Dec-2015 10:00 Encounter Diagnosis:Problem not documented Appointment; YUNG GOMEZ M.D. On:22-Dec-2016 10:30 Encounter Diagnosis:Problem not documented
--- OUTSIDE RECORDS SUMMARY | 2017-01-27 23:07 | XMS | Summary of Care ---
:1955 Author Name YUNG GOMEZ Address [facility] Unavailable , Care Team Providers Name Role Phone SONIA, MALLORIE Unavailable Unavailable , Unavailable Unavailable [...] 0.5-2.5 (3) MG/3ML Inhalation Solution Refills:0 R.N.Active Allergies and Adverse Reactions Name Dates Details [...] smoker Vital Signs Date Test Result Details 07-[id number]:19 BP Systolic 146mm[Hg] Status:Comments:Location: RUE; Position: Sitting BP Diastolic 83mm[Hg] Status:Comments:Location: RUE; Position: Sitting Height 177.8cm Status: Weight 89.81kg Status: Body Mass Index Calculated 28.41kg/m2 Status: Body Surface Area Calculated 2.08m2 Status: Heart Rate 90/min Status:Comments:Location: R Radial; Results Date Description Value Details 04-Uec-927604:32 [QLH] CALCIUM, IONIZED Ca Ion Serum 1.25 mmol/L Range:1.00-1.38 Ca Norm Serum 1.22 mmol/L Range:1.00-1.38 53-Qqc-895829:31 [QLH] CBC (INCLUDES DIFF/PLT) WBC 7.6 {K/CMM} Range:3.7-10.4 RBC 5.26 {M/CMM} Range:4.70-6.10 Hgb 14.2 g/dl Range:14.0-18.0 Hct 43.0 % Range:42.0-54.0 MCV 81.8 fL Range:80.0-94.0 MCH 27.1 pg Range:27.0-31.0 MCHC 33.1 g/dl Range:32.0-36.0 RDW 15.8 % (Above high threshold) Range:11.5-14.5 Platelet 236 {K/CMM} Range:133-450 Mean Platelet Volume 9.6 fL Range:7.4-10.4 88-Pga-891699:31 [QLH] Differential Segmented Neutrophils 72.1 % Range:45.0-75.0 Monocytes 5.4 % Range:2.0-12.0 Lymphocytes 20.9 % Range:20.0-40.0 Eosinophils 1.0 % Range:0.0-4.0 Basophils 0.6 % Range:0.0-1.0 Segs-Bands # 5.5 {K/CMM} Range:1.5-8.1 Lymphocytes # 1.6 {K/CMM} Range:1.0-5.5 Monocytes # 0.4 {K/CMM} Range:0.0-0.8 Eosinophils # 0.1 {K/CMM} Range:0.0-0.5 39-Dqs-958874:17 [[facility]] CMP W/EGFR Sodium Level 137 {mEq/l} Range:135-145 Potassium Level 4.3 {mEq/l} Range:3.5-5.1 Chloride Level 103 {mEq/l} Range:95-109 Carbon Dioxide 26 {mEq/l} Range:24-32 AGAP 12.3 {mEq/l} Range:10.0-20.0 Glucose Lvl 273 mg/dl (Above high Range:70-99 threshold) Comments:Adult reference range values reflect the clinical guidelinesof the [place] Diabetes Association. Creatinine Lvl 0.90 mg/dl Range:0.50-1.40 [...] eGFR shouldbe multiplied by the estimated BMI. : [QLH] CREATINE KINASE, TOTAL Creatine Kinase 530 [...] EndocrineSociety Clinical Practice Guideline (J Clin Endocrinol Pcgin8044;96 :7007-2254) :42 [QLH] VITAMIN D, 1,25 DIHYDROXY LC/MS/MS Vitamin D 1,25 (OH)2 Total 76 pg/ml Comments:Reference Range:Adults: 21 - 65 Vitamin D2 1,25 (OH)2 59 pg/ml Vitamin D3 1,25 (OH)2 17 pg/ml Comments:Performed At: [employer] [address] [place] [address] [id number] Samuel H MD Ph:[phone] 19-Gns-515847:42 [H] Amino Acids Plasma Taurine AA 162.0 [...] errorsof metabolism, please contact our Biochemical Geneticistsat [phone]), [email or web address] Customer Service,[place], [place]. Methodology (AA Plasma) Comment Comments:Amino acid concentrations were obtained by LC-MS/MSanalysis.Performed At: [place] [id number] [place], [place] [id number] Crystal MD Ph:[phone] At: [facility] [address] [employer] [employer] [place], [place] [id number] Avilez MD Ph: [phone] Plan of Care Name Dates Details Planned [...]
--- OUTSIDE RECORDS SUMMARY | 2017-01-27 23:07 | XMS ---
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
--- OUTSIDE RECORDS SUMMARY | 2017-01-27 23:07 | XMS | Clinical Summary ---
:1955 Author Organization [facility] Address [address] [place] [address] Phone Care Team Providers Name Role Phone , Primary Care Provider Unavailable Allergies Not on File Current Medications Not on file Active Problems Not on file Social History Tobacco Use Types Packs/Day Years Used Date Never Assessed Sex Assigned at Date Recorded Not on file Last Filed Vital Signs Not on file Plan of Treatment Not on file Results Not on filefrom Last 3 Months
--- OUTSIDE RECORDS SUMMARY | 2017-01-27 23:07 | XMS ---
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
--- OUTSIDE RECORDS SUMMARY | 2017-01-27 23:07 | XMS | Summary of Care ---
:1955 Author Name YUNG GOMEZ Address [facility] Unavailable , Care Team Providers Name Role Phone Calpella Karma Unavailable Unavailable SONIA, MALLORIE Unavailable Unavailable [...]
--- OUTSIDE RECORDS SUMMARY | 2017-01-27 23:08 | XMS | Clinical Summary ---
:1955 Author Organization [facility] Address [address] [place] [address] Phone Care Team Providers Name Role Phone , Primary Care Provider Unavailable Allergies Active Allergy Reactions Severity Noted Date Comments Sulfamethoxazole-Trimethoprim Rash Low 07/10/2013 Latex Rash Low 09/22/2016 Current Medications Prescription Sig. Disp. Refills Start Date End Date Status insulin aspart Inject 35 Units Active (NOVOLOG) 100 subcutaneously 2 unit/mL injection (two) times daily Sliding scale. insulin glargine Inject 40 Units Active (LANTUS) 100 unit/mL subcutaneously every injection morning Sliding scale. ipratropium Take 500 mcg by Active (ATROVENT) 0.02 % nebulization 2 (two) nebulizer solution times daily . albuterol Take 2.5 mg by Active (PROVENTIL) 2.5 mg nebulization 2 (two) /3 mL (0.083 %) times daily . nebulizer solution HYDROmorphone Take 1 tablet (4 mg 60 tablet 0 10/07/2015 Active (DILAUDID) 4 MG total) by mouth tablet every 4 (four) hours as needed Take every 4-6 hours as needed for pain.. sodium chloride, Take 5 mLs by 300 mL 0 10/07/2015 Active hypertonic, nebulization 2 (two) (HYPER-ROBERT) 7 % times daily. nebulizer solution Active Problems Problem Noted Date Pneumonia due to infectious organism, unspecified laterality, unspecified part of lung Pneumonia 09/23/2015 Cough 09/22/2015 Esophageal foreign body 07/10/2013 Family History Medical History Relation Name Comments Hypertension Brother Diabetes Father Hypertension Father Diabetes Mother Hypertension Mother Cancer Sister Diabetes Sister Hypertension Sister Relation Name Status Comments Brother Father Mother Sister Social History Tobacco Use Types Packs/Day Years Used Date Never Smoker Alcohol Use Drinks/Week oz/Week Comments No Sex Assigned at Date Recorded Not on file Last Filed Vital Signs Vital Sign Reading Time Taken Blood Pressure 157/74 09/24/2016 5:30 PM CDT Pulse 83 09/24/2016 5:30 PM CDT Temperature 36.6 C (97.8 F) 09/24/2016 5:30 PM CDT Respiratory Rate 16 09/24/2016 5:30 PM CDT Oxygen Saturation 99% 09/24/2016 5:30 PM CDT Inhaled Oxygen Concentration - - Weight 90.7 kg (200 lb) 09/24/2016 11:51 AM CDT Height 180.3 cm (5' 11") 09/24/2016 11:51 AM CDT Body Mass Index 27.89 09/24/2016 11:51 AM CDT Plan of Treatment Not on file Results Not on filefrom Last 3 Months
--- OUTSIDE RECORDS SUMMARY | 2017-01-27 23:16 | XMS ---
[...] Albuterol NDC 0 Active not defined NovoLog [facility] 89792-69 Active not defined 04-16 Metformin HCl [facility] 23501-71 500 MG Orally Active 1 tablet 48-01 Twice a day with meals Ipratropium [facility] 56191-87 Active not defined [place] 46-41 Results No Known Results Summary Purpose [employer]ClinicalWorks Submission
--- OUTSIDE RECORDS SUMMARY | 2017-01-27 23:17 | XMS ---
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
--- OUTSIDE RECORDS SUMMARY | 2017-01-27 23:17 | XMS | Clinical Summary ---
:1955 Author Organization [facility] Address [address] [place] [address] Phone Care Team Providers Name Role Phone [...]
--- OUTSIDE RECORDS SUMMARY | 2017-01-27 23:17 | XMS ---
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
--- OUTSIDE RECORDS SUMMARY | 2017-01-27 23:17 | XMS ---
[...] End Date Status Dosage System Date NovoLog [facility] 52891-63 Active not defined 04-16 Albuterol ND 0 Active not defined Ipratropium [facility] 98715-13 Active not defined [place] 46-[address] [facility] 89677-81 Active not defined 20-[address] [facility] 80184-63 500 MG Orally Active 1 tablet 48-01 Twice a day with meals Results No Known Results Summary Purpose [employer] Submission
--- OUTSIDE RECORDS SUMMARY | 2017-01-27 23:17 | XMS ---
[...] Date Status Dosage System Date Metformin HCl [facility] 71118-29 500 MG Orally Active 1 tablet 48-01 Twice a day with meals NovoLog [facility] 73005-05 Active not defined - Lantus [facility] 98725-88 Active not defined 20-33 Ipratropium [facility] 40319-12 Active not defined [place] 46-41 Albuterol ND 0 Active not defined Results No Known Results Summary Purpose [employer] Submission
--- OUTSIDE RECORDS SUMMARY | 2017-01-27 23:17 | XMS ---
:1955 Author Organization [facility] [employer] Care Team Providers Name Role Phone Linda Mccullough Provider Role Unavailable Allergies No Known Allergies Problems Problem Type Condition Code Onset Dates Condition Status Problem Respiratory failure, unspecified J96.91 Active with hypoxia Problem Tracheostomy status V44.0 Active Problem Other tracheostomy complication J95.09 Active Medications No Known Medications Results No Known Results Summary Purpose [facility] [employer] Submission
--- OUTSIDE RECORDS SUMMARY | 2017-01-27 23:17 | XMS | Clinical Summary ---
:1955 Author Organization [facility] Address [address] [place] [address] Phone Care Team Providers Name Role Phone [...]
--- OUTSIDE RECORDS SUMMARY | 2017-01-27 23:17 | XMS ---
:1955 Author Organization [employer] Care Team Providers Name Role Phone Linda Mccullough Provider Role Unavailable Allergies No Known Allergies Problems Problem Type Condition Code Onset Dates Condition Status Problem Tracheostomy status V44.0 Active Medications No Known Medications Results No Known Results Summary Purpose [employer] Submission
== END 2017-01-23 ==
LOC: SCSER 22:48 → SDC 01-23 02:52
PROVIDERS: ATTEND Internal Medicine Gastroenterology
PROC: 0DC58ZZ Extirpation of Matter from Esophagus, Via Natural or Artificial Opening Endoscopic (ICD-10-PCS; principal; 2017-01-23)
DX: T18.128A Food in esophagus causing other injury, initial encounter (principal); J96.10 Chronic respiratory failure, unspecified whether with hypoxia or hypercapnia; Z88.1 Allergy status to other antibiotic agents; Z93.0 Tracheostomy status
CPT/HCPCS: 43247; 82947; 82962; 88305; 88312; 88313; 96374; 99285; J1610; 36415; 36416; J2704; J3010

== ENCOUNTER 2017-12-25 14:59 | Inpatient (IN) | payer MEDICARE ==
[2017-12-25 16:03] LABS: #Eosinphils 0.1 thou/uL (0.0-0.7); #Lymphocytes 1.5 thou/uL (1.20-3.40); #Monocytes 0.4 thou/uL (0.11-0.59); #Neutrophils 6.2 thou/uL (1.40-6.50); %Basophils 0.3 % (0.0-1.0); %Eosinophils 1.4 % (0.0-10.0); %Lymphocytes 18.4 % (21.0-51.0); %Monocytes 4.8 % (0.0-10.0); %Neutrophils 75.1 % (42.0-75.0); Hemoglobin 15.1 g/dL (14.0-18.0); Mean Corpuscular HGB CONC 32.7 g/dL (32.0-36.0); Mean Corpuscular Hemoglobin 27.5 pg (27.0-31.0); Mean Corpuscular Volume 84.3 fL (78.0-98.0); Mean Platelet Volume 9.1 fL (7.4-10.4); Platelet Count 293 thou/uL (130-400); RBC Distribution Width 14.3 % (11.5-14.5); Red Blood Cell (RBC) Count 5.48 mill/uL (4.70-6.10); White Blood Cell (WBC) Count 8.3 thou/uL (4.8-10.8)
[2017-12-25 16:28] LABS: ALT (SGPT) 16 U/L (8-55); AST (SGOT) 17 U/L (5-34); Albumin 4.2 g/dL (3.4-4.8); Alkaline Phosphatase 84 U/L (40-150); Anion Gap 13 mmol/L (10-20); BUN (Urea Nitrogen) 10 mg/dL (8.4-25.7); Bilirubin, Total 0.6 mg/dL (0.2-1.2); Calc. Creatinine Clearance 0 mL/min (70-130); Calcium 9.3 mg/dL (7.8-10.44); Carbon Dioxide 24 mmol/L (23-31); Chloride 103 mmol/L (98-107); Estimated GFR-MDRD Greater than 90; Globulin 3.8 g/dL (2.4-3.5); Glucose 242 mg/dL (80-115); Potassium 4.2 mmol/L (3.5-5.1); Sodium 136 mmol/L (136-145)
--- NOTE | 2017-12-25 16:42 | RAD ---
PORTABLE CHEST: 12/25/17 HISTORY: Shortness of breath and dyspnea. No comparison. There is abnormal opacification of both lung bases consistent with bilateral effusions and bibasilar infiltrates and/or atelectasis or consolidation. Linear opacity in the left mid lung extends from the laurie possibly representing atelectasis or infiltrate. A tracheostomy device is in place. There is a PICC line to the right upper extremity which overlies t he right atrium. The upper lung zones are clear with no evidence of vascular congestion. IMPRESSION: Bibasilar opacifications consistent with bilateral effusions and bibasilar atelectasis or consolidati ons. POS: GEETA
[2017-12-25] MEDS ORDERED: Cefepime 2 GM VIAL ONE (18:43)
[2017-12-26 01:29] VITALS: BMI 30.7
[2017-12-26] MEDS: Acetaminophen 325 MG TAB PO PRN (03:32)
[2017-12-26] MEDS ORDERED: Sodium Chloride 0.9% 15 ML NEB ONE (07:32)
[2017-12-26] MEDS ORDERED: Dextrose 5% in Water 1,000 ML IV PRN (08:17)
[2017-12-26] MEDS ORDERED: Dextrose 50% Abboject 50 ML SYRINGE IVP PRN (08:17)
[2017-12-26 08:57] LABS: #Eosinphils 0.2 thou/uL (0.0-0.7); #Lymphocytes 2.4 thou/uL (1.20-3.40); #Monocytes 0.7 thou/uL (0.11-0.59); #Neutrophils 6.8 thou/uL (1.40-6.50); %Basophils 0.4 % (0.0-1.0); %Eosinophils 1.8 % (0.0-10.0); %Lymphocytes 23.4 % (21.0-51.0); %Monocytes 7.2 % (0.0-10.0); %Neutrophils 67.1 % (42.0-75.0); Hemoglobin 13.9 g/dL (14.0-18.0); Mean Corpuscular HGB CONC 33.4 g/dL (32.0-36.0); Mean Corpuscular Hemoglobin 27.7 pg (27.0-31.0); Mean Corpuscular Volume 82.8 fL (78.0-98.0); Mean Platelet Volume 8.8 fL (7.4-10.4); Platelet Count 295 thou/uL (130-400); RBC Distribution Width 14.5 % (11.5-14.5); Red Blood Cell (RBC) Count 5.03 mill/uL (4.70-6.10); White Blood Cell (WBC) Count 10.1 thou/uL (4.8-10.8)
[2017-12-26] MEDS ORDERED: INSULIN GLARGINE SC SCH ×3 (09:00→21:00)
[2017-12-26 09:16] LABS: Anion Gap 14 mmol/L (10-20); BUN (Urea Nitrogen) 9 mg/dL (8.4-25.7); Calc. Creatinine Clearance 130 mL/min (70-130); Calcium 9.5 mg/dL (7.8-10.44); Carbon Dioxide 23 mmol/L (23-31); Chloride 103 mmol/L (98-107); Estimated GFR-MDRD Greater than 90; Glucose 325 mg/dL (80-115); Potassium 4.1 mmol/L (3.5-5.1); Sodium 136 mmol/L (136-145)
[2017-12-26] MEDS: HumaLOG 300 UNITS/3 ML VIAL SC PRN ×3 (11:10→20:58)
--- NOTE | 2017-12-26 13:24 | CON ---
DATE OF SERVICE: 12/26/2017 HISTORY OF PRESENT ILLNESS: Charlie Hoffmann a pleasant 62-year-old gentleman with Pompe disease jennifer gnosed 6 years ago. He has a permanent trach for the last 5 years. He was in the [place] area, has now moved to the [facility], lives at home with the family who takes care of him. He has a perman ent vent at home. He has a #7 Portex trach with a portable ventilator with a rate of 10, 500 tidal v olume and room air 21% FiO2. He comes in yesterday with secretions, low-grade fever. No chills or s weats. He has been only once here before in this institution on January year when he had the food stuck in esophagus. SOCIAL HISTORY: He is a nonsmoker, nondrinker. PAST MEDICAL HISTORY: Diabetes, Pompe disease. PAST SURGICAL HISTORY: Trach in place. ALLERGIES: BACTRIM, LATEX. HOME MEDICATIONS: Levemir 40 units daily. SOCIAL HISTORY: Unremarkable. FAMILY HISTORY: Unremarkable. REVIEW OF SYSTEMS: Otherwise unremarkable. PHYSICAL EXAMINATION: GENERAL: He has got secretions clear. VITAL SIGNS: His sats are 100% on his vent. Temperature 99, pulse 81, blood pressure 121/74. CHEST: Rhonchi without any wheezing. CARDIAC: Normal S1, S2, no gallops. ABDOMEN: Soft without mass. LABORATORY DATA: White count 10,000, H and H 13 and 41, platelet count is normal. Electrolytes are normal. Chest x-ray shows mainly bibasilar atelectatic changes, probably from elevated hemidiaphragm and also showed an acute infiltrates. IMPRESSION: 1. Bronchitis. 2. Respiratory failure. 3. Pompe disease. 4. Status post tracheostomy. I have added steroids briefly and Dulera to his present treatment and consider switching over to oral antibiotics in the next 24-48 hours. We will follow. Consultation note 70 minutes, 50% spent in direct patient care.
--- NOTE | 2017-12-26 16:51 | HP ---
PRIMARY CARE PROVIDER: José Luis Sy M.D. CHIEF COMPLAINT: Shortness of breath. HISTORY OF PRESENT ILLNESS: Mr. Hoffmann is a pleasant 62-year-old gentleman, who was seen at [facility] on 12/26/2017. He presented to the emergency room yesterday evening complaining of shortness of breath. He has a hi story of Pompe disease. He reports having a tracheostomy during his childhood. He suctions secretio ns from his tracheostomy every morning, but yesterday the secretions were thicker, yellow in color an d accompanied by shortness of breath. He denies any fevers or chills. He denies any nausea or vomiti ng. He denies abdominal pain. REVIEW OF SYSTEMS: All other systems reviewed and found to be negative. PAST MEDICAL HISTORY: Pompe disease and diabetes mellitus type 2, insulin-dependent. PAST SURGICAL HISTORY: Tracheostomy and port in right upper arm. FAMILY HISTORY: No family history of Pompe disease. SOCIAL HISTORY: The patient denies tobacco use, alcohol use, or recreational drug use. ALLERGIES: BACTRIM, LATEX, NATURAL RUBBER. CURRENT MEDICATIONS: Lantus insulin 40 units daily, DuoNeb 3 nebulizers 2 times a day, and NovoLog i nsulin by sliding scale. PHYSICAL EXAMINATION: GENERAL: Mr. Hoffmann is awake and alert, not in acute distress. VITAL SIGNS: Blood pressure is 121/74, pulse 85, respiratory rate 20, and oxygen saturation 94% on v entilator. Temperature is 99 degrees Fahrenheit. He is obese, with a BMI of 30.8. EYES: No scleral icterus. No conjunctival pallor. ENT: Moist mucosal membranes, no oropharyngeal erythema or exudates. NECK: The patient has tracheostomy. No lymphadenopathy. RESPIRATORY: Accessory muscles of breathing are mildly active. Chest wall movements are symmetric b ilaterally. LUNGS: Reveals occasional expiratory wheeze. CARDIOVASCULAR: S1 and S2 are heard, regular. Peripheral pulses palpable. No carotid bruit, no per icardial rub. ABDOMEN: Soft, nontender, bowel sounds are heard, no hepatomegaly, no splenomegaly. NEUROLOGIC: Cranial nerves II through XII intact. SKIN: No rashes or subcutaneous nodules. LYMPHATIC: No cervical lymphadenopathy. PSYCHIATRIC: Normal mood, normal affect. The patient is oriented to person, place, and time. LABORATORY DATA: Mr. Hoffmann's labs and investigations were reviewed. He had a chest x-ray, which showed bibasilar opacification consistent with bilateral effusions and bibasilar atelectasis or cons olidations. He has a normal white count, normal platelet count, normocytic anemia with hemoglobin 13 .9, normal electrolytes and normal creatinine. Yesterday, he had an unremarkable liver profile. Lac tic acid is normal. ASSESSMENT AND PLAN: Ms. Hoffmann is a pleasant 62-year-old gentleman who was seen at [facility] on 12/26/2017. His problem list includes: 1. Acute bronchitis. He will be admitted to the hospital for management of acute bronchitis with ox ygen and bronchodilators and antibiotics. He will be admitted to the IMCU. Pulmonology service will be consulted. 2. Diabetes mellitus type 2, We will continue insulin as at home and start Accu-Cheks and insulin sl iding scale. 3. Pompe disease: Stable, nil acute. Many thanks for allowing me to participate in your patient's care. Please feel free to contact me wi th any questions or concerns. LEVEL OF RISK: Moderate. LEVEL OF COMPLEXITY: Moderate. Given his history of tracheostomy and current presentation with acute bronchitis, expected length of stay is greater than 2 nights.
[2017-12-26] MEDS: Mometasone/Formoterol 120 PUFF INHALER INH SCH (18:35)
[2017-12-26] MEDS ORDERED: Non-Formulary Item 1 EACH (Levemir Flexpen [Levemir Flexpen] 40 UNITS) SQ SCH (21:00)
[2017-12-27] MEDS: Acetaminophen 325 MG TAB PO PRN (02:09)
[2017-12-27] MEDS: HumaLOG 300 UNITS/3 ML VIAL SC PRN ×4 (05:33→20:37)
[2017-12-27 05:51] LABS: #Lymphocytes 0.9 thou/uL (1.20-3.40); #Monocytes 0.2 thou/uL (0.11-0.59); #Neutrophils 8.1 thou/uL (1.40-6.50); %Eosinophils 0.2 % (0.0-10.0); %Lymphocytes 9.3 % (21.0-51.0); %Monocytes 1.9 % (0.0-10.0); %Neutrophils 88.7 % (42.0-75.0); Hemoglobin 13.7 g/dL (14.0-18.0); Mean Corpuscular HGB CONC 33.5 g/dL (32.0-36.0); Mean Corpuscular Hemoglobin 27.5 pg (27.0-31.0); Mean Platelet Volume 9.1 fL (7.4-10.4); Platelet Count 288 thou/uL (130-400); RBC Distribution Width 14.3 % (11.5-14.5); Red Blood Cell (RBC) Count 4.99 mill/uL (4.70-6.10); White Blood Cell (WBC) Count 9.2 thou/uL (4.8-10.8)
[2017-12-27 05:54] LABS: Anion Gap 14 mmol/L (10-20); BUN (Urea Nitrogen) 16 mg/dL (8.4-25.7); Calc. Creatinine Clearance 108 mL/min (70-130); Calcium 9.8 mg/dL (7.8-10.44); Carbon Dioxide 25 mmol/L (23-31); Chloride 101 mmol/L (98-107); Estimated GFR-MDRD Greater than 90; Glucose 393 mg/dL (80-115); Potassium 4.8 mmol/L (3.5-5.1); Sodium 135 mmol/L (136-145)
[2017-12-27] MEDS: Mometasone/Formoterol 120 PUFF INHALER INH SCH ×2 (06:23→18:38)
[2017-12-27] MEDS ORDERED: INSULIN GLARGINE SC SCH (09:00)
[2017-12-27] MEDS ORDERED: PRE FILLED SC SCH (09:00)
[2017-12-27] MEDS ORDERED: Scopolamine 1.5 mg/72 hour Patch TD SCH (11:00)
--- NOTE | 2017-12-27 12:37 | PRG ---
DATE OF SERVICE: 12/27/2017 SUBJECTIVE: Still having a lot of secretions, but he is better, less short of breath. He said he andres d his trach for 7 months. He wants it to be replaced, we are trying to get him a new trach. OBJECTIVE: VITAL SIGNS: His temperature is 98, pulse 83, blood pressure is 132/77. CHEST: Reveals rhonchi without any wheezing. CARDIAC: Normal S1, S2. No gallops. ABDOMEN: No masses. LABORATORY DATA: White count 9000. Electrolytes are normal. Cultures are so far negative. IMPRESSION: 1. Bibasilar atelectasis. 2. Respiratory failure. 3. Underlying chronic respiratory failure secondary to underlying neuromuscular disease, status post permanent trach, 7 years. PLAN: Switch him to oral antibiotics. Scopolamine patch has been ordered. Can be discharged home i n the next 24-48 hours.
[2017-12-27] MEDS ORDERED: HumaLOG 300 UNITS/3 ML VIAL SC SCH (17:30)
--- NOTE | 2017-12-27 18:06 | RAD ---
SINGLE VIEW OF THE CHEST: COMPARISON: 12/25/17. HISTORY: COPD. FINDINGS: A single view of the chest shows a normal-size cardiomediastinal silhouette. The tracheostomy is unc hanged in position. Opacities are seen in the lung bases which may represent atelectasis. The PICC line is unchanged in position. IMPRESSION: Bibasilar atelectasis. POS: GEETA
--- NOTE | 2017-12-27 18:10 | PDOC.PN ---
- Subjective Encounter Start Date: 12/27/17 Encounter Start Time: 09:40 Pt seen for followup re: acute bronchitis. Feels slightly better. - Objective Vital Signs & Weight: Vital Signs (12 hours) Temp Pulse Resp BP Pulse Ox 12/27/17 15:37 98.2 F 90 19 149/64 H 100 12/27/17 13:12 77 20 100 12/27/17 11:39 97.6 F 71 26 H 151/73 H 100 12/27/17 08:11 100 12/27/17 07:17 98.8 F 83 132/77 100 12/27/17 06:26 75 10 L 100 Weight Weight 214 lb 5 oz I&O: 12/26/17 12/27/17 12/28/17 06:59 06:59 06:59 Intake Total 850 Output Total 1000 2800 Balance -1000 -1950 Result Diagrams: 12/27/17 05:25 12/27/17 05:25 Additional Labs: Accuchecks 12/27/17 12/27/17 12/27/17 16:54 10:31 05:24 POC Glucose 402 H 406 H 351 H 12/26/17 20:56 POC Glucose 432 H Phys Exam - Physical Examination Obese HEENT: moist MMs Neck: supple Trach+ Respiratory: clear to auscultation bilateral Cardiovascular: RRR Gastrointestinal: soft Neurological: moves all 4 limbs Psychiatric: normal affect Dx/Plan (1) Acute bronchitis Code(s): J20.9 - ACUTE BRONCHITIS, UNSPECIFIED Status: Acute Comment: continue antibiotics as below, pt is improving (2) DM2 (diabetes mellitus, type 2) Status: Chronic Comment: Sugars worse today, likely due to steroids. Increase insulin dose and change to aggressive insulin sliding scale. - Plan * . Review of Systems - Review of Systems Respiratory: Cough. negative: Dry, Shortness of Breath, Hemoptysis, SOB with Excertion, Pleuritic Pain, Sputum, Wheezing Cardiovascular: negative: chest pain, palpitations, orthopnea, paroxysmal nocturnal dyspnea, edema, light headedness - Medications/Allergies Allergies/Adverse Reactions: Allergies Allergy/AdvReac Type Severity Reaction Status Date / Time Latex, Natural Rubber Allergy Verified 12/26/17 01:19 sulfamethoxazole Allergy Verified 12/26/17 01:19 [From Bactrim] trimethoprim [From Bactrim] Allergy Verified 12/26/17 01:19 Medications: Current Medications Acetaminophen (Tylenol) 650 mg PO Q6H PRN PRN Reason: Headache/Fever or Pain Last Admin: 12/27/17 02:09 Dose: 650 mg Albuterol/Ipratropium (Duoneb) 3 ml NEB [id number] CEDRIC Last Admin: 12/27/17 13:12 Dose: 3 ml Albuterol/Ipratropium (Duoneb) 3 ml NEB [id number] PRN PRN Reason: SOB &/or Wheezing Dextrose/Water (Dextrose 50%) 25 gm IVP PRN PRN PRN Reason: HYPOGLYCEMIA PROTOCOL Glucagon (Glucagon) 1 mg IM PRN PRN PRN Reason: HYPOGLYCEMIA PROTOCOL Dextrose/Water (D5w) 1,000 mls @ 0 mls/hr IV INF PRN PRN Reason: HYPOGLYCEMIA PROTOCOL Insulin Glargine 50 units/ (Miscellaneous Medication) 0.5 mls @ 0 mls/hr SC HS [facility] Insulin Human Lispro (Humalog) 0 units SC .AGGRESSIVE SLIDING PRN; Protocol PRN Reason: AGGRESSIVE SLIDING SCALE Last Admin: 12/27/17 17:04 Dose: 13 units Insulin Human Lispro (Humalog) 13 units SC [facility] Stop: 12/27/17 19:30 Last Admin: 12/27/17 17:27 Dose: 13 units Levofloxacin (Levaquin) 500 mg PO 0600 [facility] Stop: 01/02/18 06:01 Mometasone Furoate/Formoterol Fumar (Dulera 200 Mcg/5 Mcg Inhaler) 2 puff INH BID-RT [facility] Last Admin: 12/27/17 06:23 Dose: 2 puff Scopolamine (Transderm Scop) 1.5 mg TD Q3D@1100 [facility] Last Admin: 12/27/17 10:36 Dose: 1.5 mg Sodium Chloride (Flush - Normal Saline) 10 ml IVF Q12HR [facility] Last Admin: 12/27/17 09:34 Dose: 10 ml Sodium Chloride (Flush - Normal Saline) 10 ml IVF PRN PRN PRN Reason: Saline Flush Last Admin: 12/27/17 00:18 Dose: 10 ml
[2017-12-27] MEDS: Insulin Glargine 50 UNITS in Pre-Filled Syringe 1 EACH SC SCH (20:37)
[2017-12-28] MEDS: HumaLOG 300 UNITS/3 ML VIAL SC PRN ×3 (06:18→20:46)
[2017-12-28 06:42] LABS: #Basophils 0.1 thou/uL (0.0-0.2); #Eosinphils 0.1 thou/uL (0.0-0.7); #Lymphocytes 2.9 thou/uL (1.20-3.40); #Monocytes 1.1 thou/uL (0.11-0.59); #Neutrophils 9.3 thou/uL (1.40-6.50); %Basophils 0.6 % (0.0-1.0); %Eosinophils 0.5 % (0.0-10.0); %Lymphocytes 21.8 % (21.0-51.0); %Monocytes 8.2 % (0.0-10.0); %Neutrophils 68.9 % (42.0-75.0); Mean Corpuscular HGB CONC 33.5 g/dL (32.0-36.0); Mean Corpuscular Volume 83.4 fL (78.0-98.0); Mean Platelet Volume 8.9 fL (7.4-10.4); Platelet Count 300 thou/uL (130-400); RBC Distribution Width 14.5 % (11.5-14.5); White Blood Cell (WBC) Count 13.5 thou/uL (4.8-10.8)
[2017-12-28 07:04] LABS: Anion Gap 12 mmol/L (10-20); BUN (Urea Nitrogen) 18 mg/dL (8.4-25.7); Calc. Creatinine Clearance 122 mL/min (70-130); Calcium 9.7 mg/dL (7.8-10.44); Carbon Dioxide 27 mmol/L (23-31); Chloride 105 mmol/L (98-107); Estimated GFR-MDRD Greater than 90; Glucose 228 mg/dL (80-115); Potassium 3.7 mmol/L (3.5-5.1); Sodium 140 mmol/L (136-145)
--- NOTE | 2017-12-28 08:42 | PRG ---
DATE OF SERVICE: 12/28/2017 This is a 62-year-old gentleman who is doing well this morning. He is on a 24-hour home vent for pro gressive respiratory failure. PHYSICAL EXAMINATION: VITAL SIGNS: Sats are 100%, respirations are 20, pulse 89, blood pressure 125/76. X-ray taken yesterday shows bibasilar atelectatic changes. I do not see any obvious pneumonia. CHEST: Chest reveals decreased breath sounds, no wheezing. CARDIAC: Normal S1, S2. ABDOMEN: Soft, no masses. IMPRESSION: 1. Worsening pneumonia, retained secretions. 2. Respiratory failure. PLAN: We will switch him over to a #6 cuffed trach. The hospital does not carry Estefania trach bag. DISPOSITION: Home in the next 24-48 hours.
[2017-12-28] MEDS: Mometasone/Formoterol 120 PUFF INHALER INH SCH ×2 (10:11→18:42)
--- NOTE | 2017-12-28 13:01 | PDOC.PN ---
- Subjective Encounter Start Date: 12/28/17 Encounter Start Time: 10:00 Pt seen for acute bronchitis. feels better. Still has thick secretions. - Objective MAR Reviewed: Yes Vital Signs & Weight: Vital Signs (12 hours) Temp Pulse Resp BP Pulse Ox 12/28/17 10:54 98.2 F 69 18 108/76 100 12/28/17 08:00 99 12/28/17 07:35 89 20 100 12/28/17 07:28 97.7 F 19 125/76 100 12/28/17 04:00 98.4 F 73 17 114/71 99 Weight Weight 209 lb I&O: 12/27/17 12/28/17 12/29/17 06:59 06:59 06:59 Intake Total 850 360 Output Total 2800 1950 Balance -1950 -1590 Result Diagrams: 12/28/17 06:44 12/28/17 06:30 Additional Labs: Accuchecks 12/28/17 12/28/17 12/27/17 10:30 05:48 19:59 POC Glucose 174 H 212 H 428 H 12/27/17 16:54 POC Glucose 402 H EKG Reviewed by me: Yes (Tele: NSR) Phys Exam - Physical Examination Constitutional: NAD HEENT: moist MMs tracheostomy Respiratory: clear to auscultation bilateral Cardiovascular: RRR Gastrointestinal: soft Neurological: moves all 4 limbs Psychiatric: normal affect Dx/Plan (1) Acute bronchitis Code(s): J20.9 - ACUTE BRONCHITIS, UNSPECIFIED Status: Acute Comment: pt is improving, now on oral antibiotics (2) DM2 (diabetes mellitus, type 2) Status: Chronic Comment: Steroids stopped, sugars are better today - Plan * . Review of Systems - Review of Systems Respiratory: Cough. negative: Dry, Shortness of Breath, Hemoptysis, SOB with Excertion, Pleuritic Pain, Sputum, Wheezing Cardiovascular: negative: chest pain, palpitations, orthopnea, paroxysmal nocturnal dyspnea, edema, light headedness - Medications/Allergies Allergies/Adverse Reactions: Allergies Allergy/AdvReac Type Severity Reaction Status Date / Time Latex, Natural Rubber Allergy Verified 12/26/17 01:19 sulfamethoxazole Allergy Verified 12/26/17 01:19 [From Bactrim] trimethoprim [From Bactrim] Allergy Verified 12/26/17 01:19 Medications: Current Medications Acetaminophen (Tylenol) 650 mg PO Q6H PRN PRN Reason: Headache/Fever or Pain Last Admin: 12/27/17 02:09 Dose: 650 mg Albuterol/Ipratropium (Duoneb) 3 ml NEB [id number] CEDRIC Last Admin: 12/28/17 07:35 Dose: 3 ml Albuterol/Ipratropium (Duoneb) 3 ml NEB [id number] PRN PRN Reason: SOB &/or Wheezing Dextrose/Water (Dextrose 50%) 25 gm IVP PRN PRN PRN Reason: HYPOGLYCEMIA PROTOCOL Glucagon (Glucagon) 1 mg IM PRN PRN PRN Reason: HYPOGLYCEMIA PROTOCOL Dextrose/Water (D5w) 1,000 mls @ 0 mls/hr IV INF PRN PRN Reason: HYPOGLYCEMIA PROTOCOL Insulin Glargine 50 units/ (Miscellaneous Medication) 0.5 mls @ 0 mls/hr SC HS [facility] Last Admin: 12/27/17 20:37 Dose: 0.5 mls Insulin Human Lispro (Humalog) 0 units SC .AGGRESSIVE SLIDING PRN; Protocol PRN Reason: AGGRESSIVE SLIDING SCALE Last Admin: 12/28/17 11:44 Dose: 3 units Levofloxacin (Levaquin) 500 mg PO 0600 [facility] Stop: 01/02/18 06:01 Last Admin: 12/28/17 06:18 Dose: 500 mg Mometasone Furoate/Formoterol Fumar (Dulera 200 Mcg/5 Mcg Inhaler) 2 puff INH BID-RT [facility] Last Admin: 12/28/17 10:11 Dose: Not Given Scopolamine (Transderm Scop) 1.5 mg TD Q3D@1100 [facility] Last Admin: 12/27/17 10:36 Dose: 1.5 mg Sodium Chloride (Flush - Normal Saline) 10 ml IVF Q12HR [facility] Last Admin: 12/28/17 09:08 Dose: 10 ml Sodium Chloride (Flush - Normal Saline) 10 ml IVF PRN PRN PRN Reason: Saline Flush Last Admin: 12/27/17 00:18 Dose: 10 ml
[2017-12-28] MEDS: Insulin Glargine 50 UNITS in Pre-Filled Syringe 1 EACH SC SCH (20:46)
[2017-12-28] MEDS ORDERED: diphenhydrAMINE 25 MG CAP PO PRN (22:51)
[2017-12-29] MEDS: HumaLOG 300 UNITS/3 ML VIAL SC PRN ×2 (06:22→11:25)
[2017-12-29] MEDS: Mometasone/Formoterol 120 PUFF INHALER INH SCH (08:17)
--- NOTE | 2017-12-29 09:04 | PRG ---
DATE OF SERVICE: 12/29/2017 This morning he is awake, alert, responsive. He is doing well. PHYSICAL EXAMINATION: VITAL SIGNS: Sats are 99% on the vent, temperature 97, blood pressure 110/66. CHEST: Chest reveals decreased breath sounds, no wheezing. CARDIAC: Normal S1, S2. No gallops. ABDOMEN: Soft, no mass. His #7 Portus tube was replaced with a #4 Shiley. Please note we tried a #6 and #8, they were both too big to replace, clearly #8 is too big and a #6 Shiley also was too big. This port was a #6 size is smaller than a #6 Shiley therefore a 4 was placed. He is tolerating 34 cuffless shiley well without any issues. CHEST: Chest reveals decreased breath sounds, no wheezing. CARDIAC: Normal S1, S2, no gallops. ABDOMEN: Soft, no masses. IMPRESSION: Respiratory failure, chronic vent at home. PLAN: He could be discharged home to follow up by his primary care physician. TANGELA
[2017-12-29 11:32] VITALS: BP 132/78; TEMP 98.2
--- NOTE | 2017-12-30 02:48 | DIS ---
DATE OF ADMISSION: 12/26/2017 DATE OF DISCHARGE: 12/29/2017 DISCHARGE DIAGNOSES: As of the followin. Acute bronchitis. 2. Diabetes. 3. Pompe disease. HOSPITAL COURSE: The patient is a very pleasant 62-year-old male who initially presented to the hosp [facility] on 12/26 with complaints of shortness of breath. The patient does have a tracheostomy and has noticed thick secretions through his tracheostomy every morning. The patient also stated that he wa s complaining of some shortness of breath, but denies any fevers or chills. The patient at that time was put on IV antibiotics and neb treatments and he was admitted to the [facility] given his history of tr ach. The patient had some mild leukocytosis; however, nothing significant. He had no viral culture that was collected. His blood cultures x48 hours were negative. Patient on discharge day, still had some secretions thick; however, his respirations status according to him was back to his baseline. The patient's per Pulmonology. The patient will be discharged to home. He will be given a tot al of 7 days of antibiotics and also DuoNeb and he will follow up with his primary care doctor. Mary Ellen ent was asked to come in to the hospital if his symptoms worsen. DISCHARGE MEDICATIONS: As of the followin. Levofloxacin 500 mg daily. 2. DuoNeb 3 mL q.6 hours. 3. Dulera 200 mcg/5 mcg 2 puffs b.i.d. 4. Levemir 40 units subcu daily. PHYSICAL EXAMINATION: VITAL SIGNS: Temperature of 98.2, 82, 17, 100%, . GENERAL: He is awake, alert, oriented x3, does not appear in any distress. CARDIOVASCULAR: S1, S2 present. No murmurs, rubs, or gallops. ABDOMEN: Soft, nontender. Bowel sounds are present x2. EXTREMITIES: No edema. Pedal pulses are present x2. The patient was seen by Pulmonary and per Pulmonary, he has been okayed to be discharged home.
== END 2017-12-29 18:50 | disposition home or self-care (01) | DRG 202 ==
LOC: ERS 14:59 → IMCU/EMU 19:04 → OBSVTOIN 12-26 11:29
PROVIDERS: ADMIT Internal Medicine; ATTEND Internal Medicine
PROC: 0B21XFZ Change Tracheostomy Device in Trachea, External Approach (ICD-10-PCS; principal; 2017-12-29)
DX: J20.9 Acute bronchitis, unspecified (principal); J18.9 Pneumonia, unspecified organism; J96.10 Chronic respiratory failure, unspecified whether with hypoxia or hypercapnia; J98.11 Atelectasis; Z99.11 Dependence on respirator [ventilator] status; Z79.84 Long term (current) use of oral hypoglycemic drugs; Z43.0 Encounter for attention to tracheostomy; Z99.81 Dependence on supplemental oxygen; G70.9 Myoneural disorder, unspecified; T38.0X5A Adverse effect of glucocorticoids and synthetic analogues, initial encounter; Y92.230 Patient room in hospital as the place of occurrence of the external cause; E11.65 Type 2 diabetes mellitus with hyperglycemia; E66.9 Obesity, unspecified; Z68.30 Body mass index [BMI] 30.0-30.9, adult; Z79.4 Long term (current) use of insulin; Z88.1 Allergy status to other antibiotic agents; Z91.040 Latex allergy status; Z91.09 Other allergy status, other than to drugs and biological substances
CPT/HCPCS: 36415; 36416; 71045; 80048; 80053; 83605; 85025; 87040; 90471; 90732; 94002; 94640; 94760; 96365; 96368; A4216; A4218; G0009; J0692; J1642; J1956; J2920; J7620

== ENCOUNTER 2019-08-23 21:15 | Inpatient (IN) | payer MEDICARE, OTHER ==
[2019-08-23] MEDS ORDERED: Midazolam HCl 5 mg/ml Vial ONE (21:40)
[2019-08-23] MEDS ORDERED: EPINEPHrine 1 MG/10 ML Abboject SYRINGE ONE (21:52)
[2019-08-23 22:01] LABS: Bacteria/HPF None Seen HPF (None Seen); Bilirubin Negative (Negative); Blood, Urine 1+ (Negative); Clarity Extra Turbid (Clear); Glucose, Urine (Dipstick) 500 mg/dL (Negative); Leukocyte Negative Leu/uL (Negative); Nitrite Negative (Negative); Protein, Urine (Dipstick) 200 mg/dL (Neg-Trace); RBC/HPF 21-50 HPF (0-3); Urobilinogen Normal mg/dL (Less than 2)
[2019-08-23 22:02] LABS: Sperm/HPF 4+ HPF (None Seen)
--- NOTE | 2019-08-23 22:34 | RAD ---
Exam: Chest one view HISTORY:Tube placement Comparison: 08/23/2019 at 8:32 PM FINDINGS: Cardiac silhouette:Persistent cardiomegaly. Lines and tubes: Redemonstration of a endotracheal tube, nasogastric tube and right-sided vascular ca theter. There appears to be interval removal of a tracheostomy. Interval decrease in gastric distention. Costophrenic angles: Left pleural effusion may be present. LUNGS: Worsening opacification of the right lung base and left lung parenchyma. Pneumothorax: None Osseous abnormalities: None IMPRESSION: 1. Interval decrease in gastric distention. 2. Worsening opacification lung parenchyma. 3. Results study discussed with Dr. Hayes 08/23/2019 at 10:31 PM Code CR
[2019-08-23] MEDS ORDERED: Ketamine 50 MG/ML (10ML VIAL) ONE (22:52)
[2019-08-23 22:56] LABS: Actual Bicarbonate (HCO3a) 19.6 mEq/L (22-28); Analyzer IN Cardio ER; Base Excess (BEa) -8.7 mEq/L (-2.0 to +3.0); Calcium, Ionized 1.22 mmol/L (1.12-1.30); Carboxyhemoglobin (COHb) 0.6 gm% (0.0-3.0); Hemoglobin (Hb) 14.2 g/dL (14.0-18.0); O2 Tension (PaO2), arterial 107.5 mmHg (> 80.0); Potassium - ABG Lab 3.75 mmol/L (3.70-5.30)
[2019-08-23 22:58] LABS: Puncture Site RR
[2019-08-23] MEDS ORDERED: Norepinephrine 8 MG/0.9% NS 250 ML ONE (23:00)
[2019-08-23] MEDS ORDERED: Cefepime 2 GM VIAL ONE (23:09)
[2019-08-23] MEDS ORDERED: Vancomycin 1 GM/200 ML BAG ONE (23:15)
[2019-08-23] MEDS ORDERED: Fentanyl 100 MCG/2 ML VIAL ONE (23:58)
[2019-08-24] MEDS ORDERED: Morphine 4 MG/ML VIAL ONE (00:33)
[2019-08-24] MEDS ORDERED: Norepinephrine 8 MG/0.9% NS 250 ML IVPB PRN (00:44)
[2019-08-24] MEDS ORDERED: Ventilator Sedation Protocol 1 EACH FS SCH (00:45)
[2019-08-24] MEDS ORDERED: Dextrose 50% Abboject 50 ML SYRINGE SLOW IVP PRN (00:46)
[2019-08-24] MEDS ORDERED: Dextrose 5% in Water 1,000 ML IV PRN (00:46)
[2019-08-24] MEDS ORDERED: fentaNYL Citrate/PF 2,000 MCG in Sodium Chloride 0.9% 60 ML IV SCH (00:50)
[2019-08-24] MEDS ORDERED: Fentanyl BOLUS 250 ML IVPB PRN (00:50)
[2019-08-24] MEDS ORDERED: Propofol 1,000 MG/100 ML VIAL IV PRN (00:50)
[2019-08-24] MEDS ORDERED: Lorazepam 2 MG/ML VIAL SLOW IVP PRN (00:50)
[2019-08-24] MEDS ORDERED: DISCONTINUE PREVIOUS NARCOTIC PAIN MEDICATIONS AND BENZODIAZEPINES FS SCH (00:50)
[2019-08-24] MEDS ORDERED: Propofol BOLUS 1,000 MG/100 ML VIAL IV PRN (00:50)
--- NOTE | 2019-08-24 00:58 | PDOC.HHP ---
Hospitalist HPI - History of Present Illness Acute resp failure with hypoxia History of Present Illness: This patient is a 63-year-old male who presented to the emergency department as a transfer from [facility]. This patient has a history of Pompeii disease. He has a chronic trach. It is unknown why he has the chronic trach. The patient apparently developed acute onset of shortness of breath today. He called an ambulance and was hypoxic with a sat in the 70s. Per the ER notes the patient was pointing to the tubing from his trach indicating to the paramedics that he needed a Q-tip in order to clear the airway. Apparently the patient had worsening hypoxia in the emergency room in [facility] and had a CODE BLUE events. He received 1 round of medication and subsequently responded. He was subsequently transferred to this facility. The patient's trach was a non-cuffed trach. It was removed in [facility] and the patient was intubated orally. This was done prior to his transfer here. Once here there was an attempt to extubate the patient and place a cuffed trach. There was significant difficulty managing the trach. After working with it for approximately 1 hour the ER physician ultimately placed a 7.0 ET tube into the trach opening. Currently the patient appears to be doing well with that. Per the ER physician attempts at using a cuffed trach resulted in significant air leakage and no ventilation. There was some concern that the patient was not ventilating well for approximately 8 hours they were working with securing the airway. He has been hypotensive and required pressors. Presently the patient seems to be more awake and responsive although still somewhat sedated. His time trying to mouth some words however it is difficult to understand. Hospitalist ROS - Review of Systems ROS unobtainable: due to endotracheal tube Hospitalist History - Past Medical History Endocrine: reports: Diabetes Other Medical History: Pompe disease - Past Surgical History Other Surgical History: Tracheostomy - Family History Other Family History: There is no prior family history documented in patient's record and he is unable to give additional history. - Social History Smoking Status: Never smoker Alcohol: reports: None Drugs: reports: none Other Social History: Obtained from the medical record. - Exam General Appearance: NAD General - other findings: Patient is somewhat sedated. He has an ET tube placed in his trach opening Eye: PERRL Neck - other findings: Trach in place. There was some trauma related to securing the airway. Heart: RRR, no murmur, no gallops, no rubs, normal peripheral pulses Respiratory: rales (Bilateral) Gastrointestinal: soft, non-tender, non-distended, normal bowel sounds, no palpable masses, no hepatomegaly, no splenomegaly, no bruit, no guarding, no rigidity Extremities: no cyanosis, no clubbing, no edema Skin: normal turgor Neurological: no focal deficits (Appears to be moving all extremities spontaneously.) Musculoskeletal: normal tone Psychiatric: somnolent Hospitalist Results - Labs Lab results: ABG pH 7.20 (7.35-7.45) L* 08/23/19 22:42 ABG pCO2 52.0 mmHg (35.0-45.0) H 08/23/19 22:42 ABG pO2 107.5 mmHg (> 80.0) H 08/23/19 22:42 Lactic Acid 2.6 mmol/L (0.5-2.2) H 08/23/19 22:51 Urine Ketones 20 mg/dL (Negative) A 08/23/19 21:28 Urine Blood 1+ (Negative) A 08/23/19 21:28 Urine Nitrite Negative (Negative) 08/23/19 21:28 Ur Leukocyte Esterase Negative Sita/uL (Negative) 08/23/19 21:28 Urine RBC 21-50 HPF (0-3) A 08/23/19 21:28 Urine WBC 11-20 HPF (0-3) A 08/23/19 21:28 Ur Squamous Epith Cells 4-6 HPF (0-3) A 08/23/19 21:28 Urine Bacteria None Seen HPF (None Seen) 08/23/19 21:28 Additional comment: WBC at [facility] was over 25,000 Hospitalist H&P A/P - Problem (1) Acute and chronic respiratory failure with hypoxia Code(s): J96.21 - ACUTE AND CHRONIC RESPIRATORY FAILURE WITH HYPOXIA Status: Acute Assessment and Plan: This patient had acute hypoxic respiratory failure events of today. The etiology is unknown although it appears that it is likely a mechanical issue related to his tracheostomy. Difficulty with this led to a brief CODE BLUE events at the [place] emergency department. The patient appears to have a secured airway at the moment although that involves a 7.0 endotracheal tube in the tracheostomy opening. It is possible the patient may have had underlying sepsis. A COVID-19 screen has been obtained. Will cover with antibiotics. Admit to the ICU. Pulmonology has been consulted. Continue ventilator support and sedation for now. (2) Sepsis Code(s): A41.9 - SEPSIS, UNSPECIFIED ORGANISM Status: Acute Assessment and Plan: Unclear if this patient has significant underlying infection. Certainly pulmonary evaluation would be concerning for the possibility of some underlying infection although he did have significant negative pressures with what appeared to be an occluded trach at some point. This could account for some abnormalities on exam and chest x-ray. He is covered with vancomycin and cefepime. (3) Tracheostomy in place Code(s): Z93.0 - TRACHEOSTOMY STATUS Status: Chronic (4) Hypotension Status: Acute Assessment and Plan: Patient is on pressors. His blood pressure appears to be significantly stabilized now that he has a secure airway. Weaning pressors as possible. (5) DM2 (diabetes mellitus, type 2) Status: Chronic Assessment and Plan: We will perform Accu-Cheks with sliding scale insulin as he will be n.p.o. for now. - Plan Plan: As above. Will cover with H2 antagonist for GI prophylaxis. Avoiding anticoagulation because of the trauma and bleeding associated with the trach management.
[2019-08-24 02:12] LABS: Lactic Acid 3.1 mmol/L (0.5-2.2)
[2019-08-24 02:19] LABS: Band 29 % (5-11); Hemoglobin 13.7 g/dL (14.0-18.0); Lymphocytes 9 % (21-51); MDiff Complete? YES; Mean Corpuscular HGB CONC 32.4 g/dL (32.0-36.0); Mean Corpuscular Hemoglobin 28.3 pg (27.0-31.0); Mean Corpuscular Volume 87.5 fL (78.0-98.0); Mean Platelet Volume 8.9 fL (7.4-10.4); Monocytes 7 % (0-10); Neutrophil 55 % (42-75); Platelet Count 291 thou/uL (130-400); Platelet Morphology Comment Appears Adequate; RBC Distribution Width 14.6 % (11.5-14.5); Red Blood Cell (RBC) Count 4.82 mill/uL (4.70-6.10); White Blood Cell (WBC) Count 31.8 thou/uL (4.8-10.8)
[2019-08-24 02:29] LABS: Anion Gap 17 mmol/L (10-20); BUN (Urea Nitrogen) 14 mg/dL (8.4-25.7); Calc. Creatinine Clearance 101 mL/min (70-130); Calcium 8.6 mg/dL (7.8-10.44); Carbon Dioxide 18 mmol/L (23-31); Chloride 109 mmol/L (98-107); Estimated GFR-MDRD Greater than 90; Glucose 276 mg/dL (80-115); Potassium 3.6 mmol/L (3.5-5.1); Sodium 140 mmol/L (136-145)
[2019-08-24] MEDS: Morphine 2 MG/ML SYRINGE SLOW IVP PRN (05:28)
[2019-08-24] MEDS: HumaLOG 300 UNITS/3 ML VIAL SC PRN ×2 (05:29→17:17)
[2019-08-24] MEDS: Vancomycin 1.5 GRAM/300 ML BAG 1.5 GM in Premix Bag 1 BAG IVPB SCH ×2 (05:29→17:56)
--- NOTE | 2019-08-24 08:02 | CON ---
DATE OF CONSULTATION: 08/24/2019 CONSULTING PHYSICIAN: Jose Kendall MD REASON FOR CONSULTATION: Dysfunctioning tracheostomy site. HISTORY OF PRESENT ILLNESS: A 63-year-old who presented in transfer from the [facility]. He has a chronic indwelling tracheostomy for Pompe disease and is on mechanical ventilation. He came in last night because the tracheostomy was not working. The history and physical indicates that the trach in was not cuffed. I am not actually sure if that was true or not. They tried to place a different tracheostomy and were unsuccessful. They tried various sizes of ET tubes before finally settling on the size 7 ET tube through the ostomy site. I have been consulted for further management. PAST MEDICAL HISTORY: 1. Pompe disease. 2. Diabetes mellitus. PAST SURGICAL HISTORY: Tracheostomy. ALLERGIES: BACTRIM AND LATEX. MEDICATIONS: Prior to admission, not known at this time. SOCIAL HISTORY: Nonsmoker. Does not consume alcohol. FAMILY MEDICAL HISTORY: Unremarkable. REVIEW OF SYSTEMS: Otherwise negative. PHYSICAL EXAMINATION: VITAL SIGNS: Heart rate 101, blood pressure 131/73, O2 saturation 100%. HEENT: Unremarkable. NECK: Ostomy site noted very narrow. LUNGS: Coarse breath sounds. CARDIAC: S1 and S2 regular. ABDOMEN: Soft. EXTREMITIES: No clubbing, cyanosis, or edema. Moves all 4 extremities without difficulty. LABORATORY DATA: White blood cell count 31.8, hematocrit 42.2, and platelet count 291. The pH is 7.2, pCO2 of 52, pO2 of 107, SIMV rate of 16, tidal volume of 500, PEEP of 5, pressure support of 10, FiO2 of 100%. Sodium 140, potassium 3.6, chloride 109, CO2 of 18, BUN 14, creatinine 0.9, glucose 276. His chest x-ray shows a prominent left-sided infiltrate. ASSESSMENT: 1. Malfunctioning tracheostomy tube. 2. Chronic respiratory failure. 3. Pompe disease. 4. Left-sided infiltrate, either indicative of pneumonia/sepsis or perhaps aspiration of blood because of the attempted tracheostomy replacement. PLAN: 1. I have asked Dr. Francis to come to see if we can just dilate the ostomy site percutaneously and put a size 8 trach back in. 2. Agree with empiric antibiotic coverage. 3. Mechanical ventilation as he is chronically on home ventilator. 4. We will notify Dr. Cheatham of the patient's hospitalization as he has been the patient's previous [employer]. Job ID: [id number]
[2019-08-24] MEDS: Famotidine 20 MG TAB PO SCH ×2 (08:48→21:37)
[2019-08-24] MEDS: Cefepime 2 GM in Sodium Chloride 0.9% 100 ML IVPB SCH ×2 (09:09→21:39)
--- NOTE | 2019-08-24 09:38 | PDOC.HOSPP ---
- Subjective Encounter Date: 08/24/19 Encounter Time: 08:00 Subjective: improved overnight and laying comfortably in bed. pending evaluation by surgery for tracheostomy dysfucntion/stenosis. - Objective Vital Signs & Weight: Vital Signs (12 hours) Temp Pulse Resp Pulse Ox 08/24/19 08:17 101 H 08/24/19 07:00 99.4 F 08/24/19 06:00 18 08/24/19 04:00 97.9 F 18 08/24/19 02:24 94 L 08/24/19 02:00 98.6 F 08/24/19 01:20 98.6 F 100 18 98 Weight Weight 201 lb 4.513 oz Most Recent Monitor Data Heart Rate from ECG 98 NIBP 94/66 NIBP BP-Mean 75 Respiration from ECG 18 SpO2 99 I&O: 08/23/19 08/24/19 08/25/19 06:59 06:59 06:59 Intake Total 390 Output Total 1825 460 Balance -1825 -70 Result Diagrams: 08/24/19 01:39 08/24/19 01:39 Additional Labs: Accuchecks 08/24/19 05:37 POC Glucose 242 H Hospitalist ROS - Review of Systems Respiratory: reports: shortness of breath. denies: cough, dry, hemoptysis, SOB with excertion, pleuritic pain, sputum Cardiovascular: denies: chest pain, palpitations, orthopnea Gastrointestinal: denies: nausea, vomiting, abdominal pain - Medication Medications: Active Medications Generic Name Dose Route Start Last Admin Trade Name Freq PRN Reason Stop Dose Admin Famotidine 20 mg 08/24/19 09:00 08/24/19 08:48 Pepcid PO 20 mg BID CEDRIC Administration Cefepime HCl 2 gm/ Sodium 100 mls @ 200 mls/hr 08/24/19 09:00 08/24/19 09:09 Chloride IVPB 100 mls Q12HR CEDRIC Administration Vancomycin HCl 1.5 gm/ Device 300 mls @ 200 mls/hr 08/24/19 06:00 08/24/19 05 :29 IVPB 300 mls 0600,1800 CEDRIC Administration Insulin Human Lispro 0 units 08/24/19 00:46 08/24/19 05:29 Humalog SC 3 unit .MILD SLIDING SCALE PRN Administration Mild Correctional Scale Morphine Sulfate 2 mg 08/24/19 00:50 08/24/19 05:28 Morphine SLOW IVP 09/23/19 00:50 2 mg Q1H PRN Administration BREAKTHROUGH PAIN/Agitation Sodium Chloride 10 ml 08/24/19 09:00 08/24/19 08:48 Flush - Normal Saline IVF 10 ml Q12HR CEDRIC Administration - Exam General Appearance: NAD, awake alert Neck: no JVD Heart: no murmur, no gallops, no rubs Heart - other findings: tachycardic 90-100s; appears sinus based on tele Respiratory: no rales, rhonchi, wheezes Respiratory - other findings: diffuse rhonchi, end expiratory wheezing Gastrointestinal: soft, non-tender, non-distended Psychiatric: normal affect, normal behavior, A&O x 3 Hosp A/P - Plan #acute on chronic respiratory failure #CAP -grossly elevated WBC, hypotensive on presentation, CXR showing b/l opacities left > right; left complete opacification (08/23), maybe be obstructive atelectasis, pending repeat CXR, may require bronch; defer to PCCM -multiple attempt to replace tube; now with 7mm tube; pending evaluation by surgery for trach dysfuntion /stenosis -pending covid r/o #T2DM -currently poorly controlled; will continue to follow and adjust insulin
[2019-08-24 11:24] LABS: SARS-CoV-2 MS2 Positive; SARS-CoV-2 N Gene Negative; SARS-CoV-2 S Gene Negative; SARS-CoV-2 orf1ab Negative
[2019-08-24] MEDS ORDERED: Midazolam HCl 2 mg/2 ml Vial IVP PRN (13:02)
[2019-08-24] MEDS ORDERED: Midazolam HCl 5 mg/5 ml Vial SLOW IVP PRN (13:03)
[2019-08-24] MEDS ORDERED: Fentanyl 100 MCG/2 ML VIAL SLOW IVP PRN ×2 (13:04)
[2019-08-24] MEDS ORDERED: Lidocaine 1% w/Epinephrine 1:100K 20 ML VIAL FS PRN (13:05)
[2019-08-24] MEDS ORDERED: Vecuronium 10 MG VIAL IV PRN (13:07)
[2019-08-24] MEDS ORDERED: Sterile Water 0 ML ONE (14:05)
[2019-08-24] MEDS ORDERED: Midazolam HCl 2 mg/2 ml Vial SLOW IVP PRN (14:06)
--- NOTE | 2019-08-24 15:39 | RAD ---
PORTABLE CHEST: 08/24/19 HX Pneumonia. Follow-up. COMPARISON: 08/23/19. ET tube and NG tube are noted. The left perihilar and left lower lung infiltrate and/or atelectasis a gain noted. The left lung appears better aerated today. Hazy infiltrate in the right lower lung is ag ain noted and does not appear significantly changed. Central line via the right upper extremity overl ies the SVC. IMPRESSION: Bilateral infiltrates again noted. Improved aeration in the left lung today. POS: AGW
--- NOTE | 2019-08-24 16:47 | OP ---
DATE OF PROCEDURE: 08/24/2019 PREOPERATIVE DIAGNOSES: 1. [id number] respiratory failure. 2. Pompe disease. POSTOPERATIVE DIAGNOSES: 1. [id number] respiratory failure. 2. Pompe disease. PROCEDURE PERFORMED: Percutaneous tracheostomy tube placement. INDICATIONS FOR PROCEDURE: This is a 63-year-old man with history of Pompe disease with progressive muscle weakness. The patient has previous tracheostomy tube, which apparently malfunctioned. Attempt to replace the tracheostomy tube was unsuccessful. As a result, a small endotracheal tube was placed in the tracheocutaneous fistula to secure opening. I was asked to place a tracheostomy tube to facilitate ventilator wean and pulmonary toilet. DESCRIPTION OF PROCEDURE: Informed consent was obtained from the patient. He was placed in supine position. He is on full mechanical ventilator support. He was given aliquots of midazolam and fentanyl to achieve deep sedation. The previous endotracheal tube was removed from the tracheocutaneous opening. The fistula was then serially dilated over the guidewire. Finally, a size 8 tracheostomy tube with a dilator and introducer catheter were advanced over the guidewire and placed in the distal tracheal lumen. The guidewire, dilator, and introducer catheter were removed as a unit, leaving the tracheostomy tube in place. An inner cannula was inserted. The cuff was inflated and the patient was connected to mechanical ventilator support via the newly placed tracheostomy tube. The proper placement of the tracheostomy tube was confirmed by bronchoscopy. The tracheostomy tube was secured to anterior neck using 0 silk suture at 2 points after the skin was anesthetized with 1% lidocaine. A trach dressings and tie were applied. The patient tolerated this procedure without any apparent complication and remained hemodynamically stable following completion of procedure. Oxygen saturation is 100%. Job ID: [id number]
[2019-08-24] MEDS ORDERED: Acetaminophen 325 MG TAB PO PRN (20:41)
[2019-08-25] MEDS ORDERED: Sodium Chloride 0.9% 1,000 ML IV SCH (01:30)
[2019-08-25 05:00] LABS: Band 10 % (5-11); Hemoglobin 12.1 g/dL (14.0-18.0); Hypochromia SLIGHT = 6-15 cells (100X) (0-5/hpf); Lymphocytes 3 % (21-51); MDiff Complete? YES; Mean Corpuscular HGB CONC 32.7 g/dL (32.0-36.0); Mean Corpuscular Hemoglobin 28.4 pg (27.0-31.0); Mean Corpuscular Volume 86.9 fL (78.0-98.0); Mean Platelet Volume 10.1 fL (7.4-10.4); Monocytes 6 % (0-10); Neutrophil 81 % (42-75); Platelet Count 237 thou/uL (130-400); Platelet Morphology Comment Appears Adequate; RBC Distribution Width 14.5 % (11.5-14.5); Red Blood Cell (RBC) Count 4.24 mill/uL (4.70-6.10); White Blood Cell (WBC) Count 21.1 thou/uL (4.8-10.8)
[2019-08-25 05:01] LABS: Anion Gap 14 mmol/L (10-20); BUN (Urea Nitrogen) 13 mg/dL (8.4-25.7); Calc. Creatinine Clearance 127 mL/min (70-130); Calcium 8.6 mg/dL (7.8-10.44); Carbon Dioxide 17 mmol/L (23-31); Chloride 114 mmol/L (98-107); Estimated GFR-MDRD Greater than 90; Glucose 105 mg/dL (80-115); Potassium 3.4 mmol/L (3.5-5.1); Sodium 142 mmol/L (136-145)
[2019-08-25 05:03] LABS: Vancomycin, Trough 22.6 ug/mL
[2019-08-25] MEDS: Vancomycin 1.5 GRAM/300 ML BAG 1.5 GM in Premix Bag 1 BAG IVPB SCH (06:35)
--- NOTE | 2019-08-25 07:59 | PDOC.HOSPP ---
- Subjective Encounter Date: 08/25/19 Encounter Time: 07:00 Subjective: overnight, hypotensive and febrile, requiring fluid resuscitation. This morning , drowsier compared to yesterday and complains of dyspnea. - Objective Vital Signs & Weight: Vital Signs (12 hours) Temp Pulse Resp Pulse Ox 08/25/19 07:52 94 08/25/19 06:00 18 08/25/19 04:00 99.9 F H 18 08/25/19 02:00 27 H 08/25/19 00:44 100 08/25/19 00:00 99.2 F 27 H 08/24/19 22:00 30 H 08/24/19 20:00 34 H 99 Weight Admit Weight 201 lb 4.48 oz Weight 200 lb 13.458 oz Most Recent Monitor Data Heart Rate from ECG 97 NIBP 125/54 NIBP BP-Mean 77 Respiration from ECG 18 SpO2 100 I&O: 08/24/19 08/25/19 08/26/19 06:59 06:59 06:59 Intake Total 2541 Output Total 1825 2565 Balance -182 -24 Result Diagrams: 08/25/19 03:30 08/25/19 03:30 Additional Labs: Accuchecks 08/25/19 08/25/19 08/24/19 06:31 00:11 17:18 POC Glucose 112 H 104 153 H 08/24/19 13:11 POC Glucose 150 H Hospitalist ROS - Review of Systems Constitutional: reports: fever, sweats. denies: chills Respiratory: reports: shortness of breath. denies: cough, dry, hemoptysis, SOB with excertion, pleuritic pain, sputum, wheezing, other Cardiovascular: denies: chest pain, palpitations, orthopnea, paroxysmal noc. dyspnea, edema, light headedness, other Gastrointestinal: denies: nausea, vomiting, abdominal pain, diarrhea, constipation, melena, hematochezia, other - Medication Medications: Active Medications Generic Name Dose Route Start Last Admin Trade Name Freq PRN Reason Stop Dose Admin Acetaminophen 650 mg 08/24/19 20:41 08/24/19 21:37 Tylenol PO 650 mg Q4H PRN Administration Headache/Fever or Pain Famotidine 20 mg 08/24/19 09:00 08/24/19 21:37 Pepcid PO 20 mg BID CEDRIC Administration Insulin Human Lispro 0 units 08/24/19 00:46 08/24/19 17:17 Humalog SC 2 unit .MILD SLIDING SCALE PRN Administration Mild Correctional Scale Morphine Sulfate 2 mg 08/24/19 00:50 08/24/19 05:28 Morphine SLOW IVP 09/23/19 00:50 2 mg Q1H PRN Administration BREAKTHROUGH PAIN/Agitation Sodium Chloride 10 ml 08/24/19 09:00 08/24/19 21:52 Flush - Normal Saline IVF 10 ml Q12HR CEDRIC Administration - Exam General Appearance: NAD General - other findings: drowsier Heart: no murmur, no gallops, no rubs Heart - other findings: HR 90-100s, sinus based on tele Gastrointestinal: soft, non-tender, non-distended Extremities: no edema Psychiatric: A&O x 3 Psychiatric - other findings: drowsier Hosp A/P - Plan #acute on chronic respiratory failure #CAP/aspiration pneumonia -S/p trach placement -considering complete left lung opacification on presentation possibly due to mucous plug, tracheostomy dysfunction, and overnight hypotension and fever, changed cefepime to zosyn for anaerobic coverage -leukocytosis lower, BCx pending -respiratory culture -ventilation as per PCCM #T2DM -currently well controlled Disposition: medical floor once medically stable
[2019-08-25 08:09] LABS: Actual Bicarbonate (HCO3a) 16.4 mEq/L (22-28); Base Excess (BEa) -7.8 mEq/L (-2.0 to +3.0); CO2 Tension 29.8 mmHg (35.0-45.0); Calcium, Ionized 1.25 mmol/L (1.12-1.30); Carboxyhemoglobin (COHb) 0.9 gm% (0.0-3.0); O2 Tension (PaO2), arterial 98.7 mmHg (> 80.0); Potassium - ABG Lab 3.45 mmol/L (3.70-5.30); pH, Arterial 7.36 (7.35-7.45)
[2019-08-25 08:14] LABS: Puncture Site LRA
--- NOTE | 2019-08-25 08:31 | RAD ---
PORTABLE CHEST: DATE: 08/25/2019. PROVIDED CLINICAL HISTORY: Respiratory insufficiency. FINDINGS: Comparison 08/24/2019. Significant interval change with respect to the prior examination is not appar ent. IMPRESSION: As above. POS: MARA
[2019-08-25] MEDS: Vancomycin HCl 1.25 GM in Sodium Chloride 0.9% 250 ML 250 ML IVPB SCH ×2 (08:35→20:31)
[2019-08-25] MEDS: Morphine 2 MG/ML SYRINGE SLOW IVP PRN ×3 (08:40→21:05)
[2019-08-25] MEDS: Famotidine 20 MG TAB PO SCH ×2 (08:42→20:31)
--- NOTE | 2019-08-25 08:54 | PRG ---
DATE OF SERVICE: 08/25/2019 SUBJECTIVE: This morning, he is on the vent, awake, alert, and responsive. Denies any pain or discomfort. OBJECTIVE: VITAL SIGNS: Pulse 94, respirations 18, blood pressure 120/54, saturations 100%. His I's and O's have been negative. CHEST: Decreased breath sounds. No wheezing. CARDIAC: Normal S1 and S2. No gallops. ABDOMEN: No masses. DIAGNOSTIC STUDIES: His x-ray shows worsening bilateral pulmonary infiltrates. His white count is 21,000. So far, all cultures are negative. ASSESSMENT AND PLAN: Respiratory failure, permanent trach. He is on Zosyn, vancomycin. A bronchoscopy will be performed today. Start low-dose steroids. One-half hour of critical care time. We will follow. Job ID: [id number]
[2019-08-25] MEDS ORDERED: Sodium Chloride 0.65% Nasal 44 ML BOT EA NARE PRN (10:26)
[2019-08-25] MEDS: Piperacillin/Tazobactam 4.5 GM in Sodium Chloride 0.9% 100 ML IVPB SCH ×2 (12:56→17:50)
[2019-08-25] MEDS: methylPREDNISolone Sod Succ/PF 125 MG/2 ML VIAL IVP SCH ×2 (12:56→17:50)
[2019-08-25] MEDS: Sodium Chloride 0.65% Nasal 44 ML BOT EA NARE SCH ×2 (12:58→20:31)
--- NOTE | 2019-08-25 14:35 | OP ---
DATE OF PROCEDURE: 08/25/2019 This is a 63-year-old gentleman. PROCEDURE: Bronchoscopy and lavage, therapeutic. INDICATION: Bilateral retained secretions, status post trach. DESCRIPTION OF PROCEDURE: Informed consent from the patient. He was given 4 of morphine prior to the procedure. The flexible bronchoscope Olympus was then passed using an adapter to distal trachea. There were copious amounts of thick bloody secretion, which were sectioned and lavaged to clear. The right lung was initiated initially. The right upper, right middle, right lower lobe had additional mucoid secretions, which were also suctioned and lavaged to clear. No endobronchial obstruction, blood or pus seen. The left lung inspected thereafter. This again moderate amount of bloody secretions without any obvious endobronchial obstruction. This area was also lavaged with normal saline to clear. The washing was sent for Gram stain and C and S. Otherwise, the patient tolerated the procedure well. Job ID: [id number]
[2019-08-25] MEDS: Mometasone 200 MCG/Formoterol 5 MCG 120 PUFF INHALER INH SCH (18:18)
[2019-08-26] MEDS: Piperacillin/Tazobactam 4.5 GM in Sodium Chloride 0.9% 100 ML IVPB SCH ×2 (00:06→06:03)
[2019-08-26] MEDS: methylPREDNISolone Sod Succ/PF 125 MG/2 ML VIAL IVP SCH ×2 (00:07→06:03)
[2019-08-26] MEDS: HumaLOG 300 UNITS/3 ML VIAL SC PRN ×4 (00:09→18:30)
[2019-08-26 05:24] LABS: #Lymphocytes 0.8 thou/uL (1.20-3.40); #Monocytes 0.6 thou/uL (0.11-0.59); #Neutrophils 19.2 thou/uL (1.40-6.50); %Basophils 0.2 % (0.0-1.0); %Lymphocytes 3.9 % (21.0-51.0); %Monocytes 2.7 % (0.0-10.0); %Neutrophils 93.1 % (42.0-75.0); Hemoglobin 12.1 g/dL (14.0-18.0); Mean Corpuscular HGB CONC 31.9 g/dL (32.0-36.0); Mean Corpuscular Volume 87.8 fL (78.0-98.0); Mean Platelet Volume 9.8 fL (7.4-10.4); Platelet Count 269 thou/uL (130-400); RBC Distribution Width 14.8 % (11.5-14.5); Red Blood Cell (RBC) Count 4.32 mill/uL (4.70-6.10); White Blood Cell (WBC) Count 20.6 thou/uL (4.8-10.8)
[2019-08-26 05:45] LABS: Anion Gap 14 mmol/L (10-20); BUN (Urea Nitrogen) 17 mg/dL (8.4-25.7); Calc. Creatinine Clearance 105 mL/min (70-130); Calcium 9.4 mg/dL (7.8-10.44); Carbon Dioxide 18 mmol/L (23-31); Chloride 117 mmol/L (98-107); Estimated GFR-MDRD Greater than 90; Glucose 176 mg/dL (80-115); Magnesium 2.1 mg/dL (1.6-2.6); Potassium 3.8 mmol/L (3.5-5.1); Sodium 145 mmol/L (136-145)
[2019-08-26 07:18] LABS: Actual Bicarbonate (HCO3a) 17.9 mEq/L (22-28); Base Excess (BEa) -7.1 mEq/L (-2.0 to +3.0); CO2 Tension 34.2 mmHg (35.0-45.0); Carboxyhemoglobin (COHb) 0.2 gm% (0.0-3.0); Hemoglobin (Hb) 12.5 g/dL (14.0-18.0); O2 Tension (PaO2), arterial 108.3 mmHg (> 80.0); Potassium - ABG Lab 3.57 mmol/L (3.70-5.30); pH, Arterial 7.34 (7.35-7.45)
[2019-08-26 07:19] LABS: Puncture Site RBA
--- NOTE | 2019-08-26 07:59 | RAD ---
PORTABLE CHEST: Date: 08/26/2019 HISTORY: CCU follow-up. COMPARISON: 08/25/2019. FINDINGS: Bilateral effusions and bibasilar infiltrates again noted. Tracheostomy device is unchanged. Upper fredi ng zones are aerated and clear. IMPRESSION: Stable chest findings. POS: AGW
[2019-08-26] MEDS: Mometasone 200 MCG/Formoterol 5 MCG 120 PUFF INHALER INH SCH (08:02)
--- NOTE | 2019-08-26 08:27 | PDOC.HOSPP ---
- Subjective Encounter Date: 08/26/19 Encounter Time: 07:30 Subjective: overnight, bronchoscopy and lavage, thick bloody secretions, samples sent for culture. This morning, feeling better, no longer complains of dyspnea. - Objective Vital Signs & Weight: Vital Signs (12 hours) Temp Pulse Resp BP 08/26/19 06:36 83 143/70 H 08/26/19 06:00 30 H 08/26/19 04:00 98.7 F 27 H 08/26/19 02:47 101 H 131/69 08/26/19 02:00 23 H 08/26/19 00:15 89 124/70 08/26/19 00:00 98.4 F 27 H 08/25/19 22:11 93 153/64 H 08/25/19 22:00 28 H Weight Admit Weight 201 lb 4.48 oz Weight 198 lb 10.184 oz Most Recent Monitor Data Heart Rate from ECG 79 NIBP 108/60 NIBP BP-Mean 76 Respiration from ECG 34 SpO2 97 I&O: 08/25/19 08/26/19 08/27/19 06:59 06:59 06:59 Intake Total 2541 1267 Output Total 2563 1175 Balance -24 -1138 Result Diagrams: 08/26/19 04:00 08/26/19 04:00 Additional Labs: Accuchecks 08/26/19 08/26/19 08/25/19 06:11 00:10 18:03 POC Glucose 173 H 190 H 139 H 08/25/19 13:28 POC Glucose 116 H Hospitalist ROS - Review of Systems Constitutional: denies: chills, sweats Respiratory: reports: sputum. denies: cough, dry, shortness of breath, pleuritic pain Cardiovascular: denies: chest pain, palpitations Gastrointestinal: denies: nausea, vomiting, abdominal pain - Medication Medications: Active Medications Generic Name Dose Route Start Last Admin Trade Name Freq PRN Reason Stop Dose Admin Acetaminophen 650 mg 08/24/19 20:41 08/24/19 21:37 Tylenol PO 650 mg Q4H PRN Administration Headache/Fever or Pain Famotidine 20 mg 08/24/19 09:00 08/25/19 20:31 Pepcid PO Not Given BID CEDRIC Vancomycin HCl 1.25 gm/ Sodium 250 mls @ 166.667 mls/hr 08/25/19 08:00 20:31 Chloride IVPB 250 mls 0800,1999 CEDRIC Administration Piperacillin Sod/Tazobactam 100 mls @ 200 mls/hr 08/25/19 12:00 08/26/19 06: 03 Sod 4.5 gm/ Sodium Chloride IVPB 100 mls Q6HR CEDRIC Administration Insulin Human Lispro 0 units 08/24/19 00:46 08/26/19 06:07 Humalog SC 2 unit .MILD SLIDING SCALE PRN Administration Mild Correctional Scale Lorazepam 2 mg 08/24/19 00:50 08/25/19 09:12 Ativan SLOW IVP 09/23/19 00:50 2 mg Q1H PRN Administration Breakthrough agitation Methylprednisolone Sodium Succinate 40 mg 08/25/19 12:00 08/26/19 06:03 Solu-Medrol IVP 40 mg Q6HR CEDRIC Administration Mometasone Furoate/Formoterol Fumar 2 puff 08/25/19 18:30 08/26/19 08:02 Dulera 200 Mcg/5 Mcg Inhaler INH 2 puff BID-RT CEDRIC Administration Morphine Sulfate 2 mg 08/24/19 00:50 08/25/19 21:05 Morphine SLOW IVP 09/23/19 00:50 2 mg Q1H PRN Administration BREAKTHROUGH PAIN/Agitation Sodium Chloride 10 ml 08/24/19 09:00 08/25/19 20:32 Flush - Normal Saline IVF 10 ml Q12HR CEDRIC Administration Sodium Chloride 1 ml 08/25/19 15:00 08/25/19 20:31 Wilkes Nasal [place] 0.65% EA NARE 08/28/19 15:01 1 spray TID CEDRIC Administration - Exam General Appearance: NAD, awake alert Heart: RRR, no murmur, no gallops, no rubs Respiratory: rhonchi Respiratory - other findings: coarse breath sounds, on mechanical ventilation Extremities: no edema Psychiatric: normal affect, normal behavior, A&O x 3 Hosp A/P - Plan #acute on chronic respiratory failure #CAP/aspiration pneumonia -S/p trach replacement -considering complete left lung opacification on presentation possibly due to mucous plug, tracheostomy dysfunction, and overnight hypotension and fever, changed cefepime to zosyn for anaerobic coverage -CXR unchanged (08/25); ABG compensated metabolic acidosis -s/p bronch and lavage (08/24); copious bloody secretions; sent for culture with pending results -continue vanc and zosyn -ventilation as per PCCM -advance diet as per speech/swallow recs #T2DM -currently well controlled Disposition: medical floor once medically stable
[2019-08-26] MEDS ORDERED: methylPREDNISolone Sod Succ/PF 125 MG/2 ML VIAL IVP SCH (09:00)
[2019-08-26] MEDS ORDERED: Bacteriostatic Water 30 ML VIAL FS PRN (09:03)
--- NOTE | 2019-08-26 09:03 | PRG ---
DATE OF SERVICE: 08/25/2019 I spoke to patient's brother, his telephone number is [phone]. He generally brings him to the [facility] place every two weeks for some kind of transfusion related issues. The patient has been living independently with 24 hour care. He has a live-in friend who takes care of the patient. Additionally he has some kind of a provider that comes for several hours at a time. He is on a vent 24 hours. His last trach was changed two years ago. Prior to that, the patient was going to [place], where he was seeing his physicians for routine check on his trach. He is on the vent for prolonged respiratory failure secondary to an unknown neuromuscular disease. Today, he had a swallow test, which he failed. The brother tells me that the patient has been eating and drinking on his own on the vent without any problems. I had some reservations regarding the eating on the vent because I am concerned he may be aspirating, though the brother did mention that he did not think that the patient was aspirating while he was eating. Be that as it may, he is clearly very weak at this stage. He has failed the swallow test. We are going to try him on a clear liquid diet. If he fails, he is going to either need re-insertion of his NG tube or a PEG at some time. His eventual wishes are to go back home with 24 hour care. At this stage, his long-term prognosis is guarded. He is once again is going to require 24 hour vent care because of his progressive neuromuscular disease. He has been ambulating with the help of a walker at home as per the brother. We are going to be adjusting his antibiotics once we have the results of his cultures back. We will notify Social Service regarding his living situation, etc., see what else can be done about it. Job ID: [id number]
--- NOTE | 2019-08-26 09:03 | PRG ---
DATE OF SERVICE: 08/26/2019 SUBJECTIVE: He is much improved. Please note, in baseline chest x-ray, he has an elevated right hemidiaphragm substantially. His left lung also has an elevated hemidiaphragm probably from his previous neuromuscular disease. There is minimal infiltrate in the left base. He underwent a bronchoscopy yesterday. A large amounts of blood clots and pus, which were suctioned and lavaged to clear. OBJECTIVE: VITAL SIGNS: His saturations are 100% on 30% and rate of 10, pulse 78, blood pressure 105/50, and respirations 18. GENERAL: Awake, alert, and responsive. CHEST: No wheezing or crackles. CARDIAC: Normal S1 and S2. No gallops. ABDOMEN: No masses. LABORATORY DATA: White count 20,000, H and H 12 and 38, and platelet count is normal. A pO2 is 102, pCO2 is . Lytes are normal. So far bronch washings and culture pending. Discontinue vancomycin. Discontinue Zosyn. I have started him on steroids, which will decrease in taper as well as Maxipime. Await cultures. To note, he is having issues with his intake by mouth according to his brother, whom I spoke to him at length yesterday. He stated the patient without any issues. One-half hour of critical care time. Job ID: [id number]
[2019-08-26] MEDS: Famotidine 20 MG TAB PO SCH (09:14)
[2019-08-26] MEDS: Famotidine/PF 20 mg/2ml Vial SLOW IVP SCH (09:17)
[2019-08-26] MEDS: Cefepime 1 GM in Sodium Chloride 0.9% 100 ML IVPB SCH ×2 (09:17→20:58)
[2019-08-26] MEDS: Sodium Chloride 0.65% Nasal 44 ML BOT EA NARE SCH ×3 (09:18→21:00)
--- NOTE | 2019-08-26 15:52 | PQF ---
CLINICAL DOCUMENTATION IMPROVEMENT CLARIFICATION FORM: ICD-10 Updated PLEASE DO AN ADDENDUM TO THE PROGRESS NOTE WITH ANY DOCUMENTATION UPDATES OR ADDITIONS AND CARRY THROUGH TO DC SUMMARY. THANK YOU. DATE: 08/26/2019 ATTN: Dr. Zhao Please exercise your independent, professional judgment in responding to the clarification form. Clinical indicators are provided on the bottom of this form for your review Please check appropriate box(s) to clarify if the following diagnosis has been ruled in or ruled out: SEPSIS [ x ] Ruled in diagnosis [ x ] Continue to treat [ ] Resolved [ ] Ruled out diagnosis [ ] Improving [ ] Cannot rule out diagnosis [ ] Other diagnosis [ ] Unable to determine In addition, please specify: Present on Admission (POA): [ x ] Yes [ ] No [ ] Unable to determine For continuity of documentation, please document condition throughout progress notes and discharge summary. Thank You. CLINICAL INDICATORS - SIGNS / SYMPTOMS / LABS / RESULTS AND LOCATION IN ER Record 08/23: BP 65/56 pulse 115, resp. 26 Diagnosis: Respiratory failure. septic shock H&P 08/23: LAB: Lactic acid 2.6 WBC at [facility] was over 25,000 A/P: Acute and chronic respiratory failure with hypoxia Sepsis Hypotension. Pt is on pressures. 08/25 (Pavel) acute on chronic respiratory failure CAP/aspiration pneumonia RISKS: H&P 08/23: Hx of Pompeii disease. Diabetes, Chronic trach. A/P Acute and chronic respiratory failure with hypoxia. Hypotension TREATMENT: 08/24 (Nic) Mechanical ventilation as he is chronically on home ventilator Order 08/24-08/25: Vancomycin HCL 1,25 gm IV Order 08/24-08/25: Zosyn 4.5 gm IV q 6 hr MAR: Order 08/25: Cefepime 1 gm IV q 12 hr Thank you, Roula (This form is maintained as a part of the permanent medical record) 2014 [employer]. All Rights Reserved Roula Lester, RN, BSN [email or web address]
[2019-08-26] MEDS: methylPREDNISolone Sod Succ 40 MG VIAL IVP SCH (18:26)
[2019-08-26] MEDS: Vancomycin HCl 1.25 GM in Sodium Chloride 0.9% 250 ML 250 ML IVPB SCH (19:26)
[2019-08-27] MEDS: HumaLOG 300 UNITS/3 ML VIAL SC PRN ×3 (00:46→11:59)
[2019-08-27] MEDS: methylPREDNISolone Sod Succ 40 MG VIAL IVP SCH ×2 (06:44→17:15)
[2019-08-27] MEDS: Famotidine/PF 20 mg/2ml Vial SLOW IVP SCH (08:12)
[2019-08-27] MEDS: Cefepime 1 GM in Sodium Chloride 0.9% 100 ML IVPB SCH ×2 (08:12→20:25)
[2019-08-27] MEDS: Sodium Chloride 0.65% Nasal 44 ML BOT EA NARE SCH ×3 (08:16→20:25)
--- NOTE | 2019-08-27 08:56 | RAD ---
CHEST 1 VIEW: Date: 08/27/2019 HISTORY: Respiratory insufficiency. COMPARISON: 08/26/2019. FINDINGS: Tracheostomy tube and right PICC line in place. Stable bilateral pleural effusions and bibasilar pulm onary parenchymal changes. No significant new process. IMPRESSION: Stable bibasilar parenchymal changes and pleural effusion changes. Continue short-term follow-up. POS: [facility]
--- NOTE | 2019-08-27 15:52 | PDOC.HOSPP ---
- Subjective Encounter Date: 08/27/19 Encounter Time: 10:00 Subjective: Patient' reports history of Pompeii disease The patient states his breathing has improved somewhat. He feels slight congestion but it has improved. He uses a trach at home chronically. RR 38 when I evaluated patient - Objective Vital Signs & Weight: Vital Signs (12 hours) Temp Pulse Resp BP Pulse Ox 08/27/19 14:30 64 172/92 H 08/27/19 10:39 77 143/70 H 08/27/19 07:58 25 H 98 08/27/19 07:00 98.3 F 08/27/19 06:39 82 132/62 99 08/27/19 06:00 13 08/27/19 04:00 25 H Weight Admit Weight 201 lb 4.48 oz Weight 198 lb 6.656 oz Most Recent Monitor Data Heart Rate from ECG 69 NIBP 184/95 NIBP BP-Mean 124 Respiration from ECG 25 SpO2 98 I&O: 08/26/19 08/27/19 08/28/19 06:59 06:59 06:59 Intake Total 1267 2042 720 Output Total 2405 1525 580 Balance -1138 517 140 Result Diagrams: 08/26/19 04:00 08/26/19 04:00 Additional Labs: Accuchecks 08/27/19 08/27/19 08/27/19 11:59 06:45 00:49 POC Glucose 208 H 220 H 262 H 08/26/19 18:35 POC Glucose 255 H Hospitalist ROS - Medication Medications: Active Medications Generic Name Dose Route Start Last Admin Trade Name Freq PRN Reason Stop Dose Admin Acetaminophen 650 mg 08/24/19 20:41 08/24/19 21:37 Tylenol PO 650 mg Q4H PRN Administration Headache/Fever or Pain Famotidine 20 mg 08/26/19 09:00 08/27/19 08:12 Pepcid SLOW IVP 20 mg DAILY CEDRIC Administration Cefepime HCl 1 gm/ Sodium 100 mls @ 200 mls/hr 08/26/19 09:00 08/27/19 08:12 Chloride IVPB 08/31/19 09:01 100 mls Q12HR CEDRIC Administration Insulin Human Lispro 0 units 08/24/19 00:46 08/27/19 11:59 Humalog SC 2 unit .MILD SLIDING SCALE PRN Administration Mild Correctional Scale Lorazepam 2 mg 08/24/19 00:50 08/25/19 09:12 Ativan SLOW IVP 09/23/19 00:50 2 mg Q1H PRN Administration Breakthrough agitation Methylprednisolone Sodium Succinate 40 mg 08/26/19 18:00 08/27/19 06:44 Solu-Medrol IVP 40 mg 0600,1800 CEDRIC Administration Morphine Sulfate 2 mg 08/24/19 00:50 08/25/19 21:05 Morphine SLOW IVP 09/23/19 00:50 2 mg Q1H PRN Administration BREAKTHROUGH PAIN/Agitation Sodium Chloride 10 ml 08/24/19 09:00 08/27/19 08:16 Flush - Normal Saline IVF 10 ml Q12HR CEDRIC Administration Sodium Chloride 1 ml 08/25/19 15:00 08/27/19 15:42 [place] Nasal [place] 0.65% EA NARE 08/28/19 15:01 1 spray TID CEDRIC Administration - Exam General Appearance: NAD, awake alert General - other findings: trach in place Eye: PERRL, anicteric sclera ENT: normocephalic atraumatic, no oropharyngeal lesions Neck: supple, no JVD Heart: RRR, no murmur, no gallops, no rubs Respiratory: CTAB Respiratory - other findings: mild rales at the base Gastrointestinal: soft, non-tender, non-distended Extremities: no cyanosis, no clubbing, no edema Skin: normal turgor, no lesions, no rashes Neurological: cranial nerve grossly intact, normal sensation to touch Musculoskeletal: normal tone, normal strength, no muscle wasting Psychiatric: normal affect, normal behavior, A&O x 3 Hosp A/P - Plan This is a 63 year old male with history of Pompeii disease on trachestomy who presented with SOB, admitted for pneumonia Acute hypoxic respiratory failure secondary to pseudomonas pneumonia History of Pompe disease - sputum culture growing pseudomonas - on cefepime from 08/25 to 08/30. IV steroids twice daily - WBC currently 20, blood culture showed 1/2 corynebacterium - continue vent for another day then wean to trach. Could possibly go to IMCU if respiratory rate improves and stable Leukocytosis - WBC 20, will repeat today Metabolic acidosis - bicarb noted to be 18, will repeat labs today Code status: full code
[2019-08-27 16:21] LABS: Mean Corpuscular HGB CONC 32.7 g/dL (32.0-36.0); Mean Corpuscular Hemoglobin 28.5 pg (27.0-31.0); Mean Corpuscular Volume 87.2 fL (78.0-98.0); Mean Platelet Volume 9.6 fL (7.4-10.4); Platelet Count 263 thou/uL (130-400); RBC Distribution Width 14.9 % (11.5-14.5); Red Blood Cell (RBC) Count 4.22 mill/uL (4.70-6.10); White Blood Cell (WBC) Count 15.5 thou/uL (4.8-10.8)
[2019-08-27 16:40] LABS: Anion Gap 15 mmol/L (10-20); BUN (Urea Nitrogen) 22 mg/dL (8.4-25.7); Calc. Creatinine Clearance 120 mL/min (70-130); Carbon Dioxide 18 mmol/L (23-31); Chloride 113 mmol/L (98-107); Estimated GFR-MDRD Greater than 90; Glucose 291 mg/dL (80-115); Potassium 3.7 mmol/L (3.5-5.1); Sodium 142 mmol/L (136-145)
[2019-08-28] MEDS: HumaLOG 300 UNITS/3 ML VIAL SC PRN ×4 (00:19→17:34)
[2019-08-28] MEDS: methylPREDNISolone Sod Succ 40 MG VIAL IVP SCH ×2 (05:51→17:27)
[2019-08-28 06:09] LABS: Hemoglobin 11.6 g/dL (14.0-18.0); Mean Corpuscular HGB CONC 32.9 g/dL (32.0-36.0); Mean Corpuscular Hemoglobin 28.4 pg (27.0-31.0); Mean Corpuscular Volume 86.4 fL (78.0-98.0); Mean Platelet Volume 9.4 fL (7.4-10.4); Platelet Count 248 thou/uL (130-400); RBC Distribution Width 14.7 % (11.5-14.5); Red Blood Cell (RBC) Count 4.08 mill/uL (4.70-6.10); White Blood Cell (WBC) Count 13.1 thou/uL (4.8-10.8)
[2019-08-28 06:30] LABS: Anion Gap 11 mmol/L (10-20); BUN (Urea Nitrogen) 21 mg/dL (8.4-25.7); Calc. Creatinine Clearance 132 mL/min (70-130); Calcium 8.7 mg/dL (7.8-10.44); Carbon Dioxide 23 mmol/L (23-31); Chloride 110 mmol/L (98-107); Estimated GFR-MDRD Greater than 90; Glucose 253 mg/dL (80-115); Potassium 3.6 mmol/L (3.5-5.1); Sodium 140 mmol/L (136-145)
--- NOTE | 2019-08-28 07:29 | PRG ---
DATE OF SERVICE: 08/27/2019 SUBJECTIVE: Philip Hoffmann remains mechanically ventilated. He likes letting his cuff down on his tracheostomy tube to facilitate talking, but with his cuff down on the #8 trach, he has difficulty talking. I have explained to him that a little further down the road he could probably be changed to #6 cuffed tube and that would help him communicate perhaps a little better. At this point, HEART: Regular rhythm. ABDOMEN: Soft and nontender. EXTREMITIES: Chest x-ray is unchanged. IMPRESSION: 1. Chronic respiratory failure. 2. pneumonia likely aspiration mediated. 3. History of chronic home ventilation because of Pompe disease. 4. Diabetes. We will continue current management. Job ID: [id number]
--- NOTE | 2019-08-28 08:45 | RAD ---
PORTABLE CHEST ONE VIEW: HISTORY: Respiratory insufficiency. COMPARISON: 08/27/2019 FINDINGS/IMPRESSION: Stable poor inspiratory effort with bibasilar pleural and parenchymal opacity changes. No significant new process. Continue short-term followup. POS: [facility]
[2019-08-28] MEDS: Cefepime 1 GM in Sodium Chloride 0.9% 100 ML IVPB SCH (09:02)
[2019-08-28] MEDS: Famotidine/PF 20 mg/2ml Vial SLOW IVP SCH (09:03)
[2019-08-28] MEDS: Sodium Chloride 0.65% Nasal 44 ML BOT EA NARE SCH ×2 (09:35→14:05)
--- NOTE | 2019-08-28 12:03 | PDOC.HOSPP ---
- Subjective Encounter Date: 08/28/19 Encounter Time: 12:01 Subjective: The patient states his chest still feels congested and he is unable to clear it up. He denies chest pain He does feel his breathing has improved - Objective Vital Signs & Weight: Vital Signs (12 hours) Temp Pulse Resp BP Pulse Ox 08/28/19 10:12 95 153/90 H 08/28/19 10:00 27 H 08/28/19 08:00 98.1 F 28 H 99 08/28/19 07:11 60 127/72 08/28/19 06:00 25 H 08/28/19 04:00 98.5 F 34 H 08/28/19 02:48 100 08/28/19 02:46 59 L 132/67 08/28/19 02:00 18 Weight Admit Weight 201 lb 4.48 oz Weight 199 lb Most Recent Monitor Data Heart Rate from ECG 90 NIBP 166/77 NIBP BP-Mean 106 Respiration from ECG 11 SpO2 97 I&O: 08/27/19 08/28/19 08/29/19 06:59 06:59 06:59 Intake Total 2042 4020 240 Output Total 1525 2360 410 Balance 517 1660 -170 Result Diagrams: 08/28/19 05:48 08/28/19 05:48 Additional Labs: Accuchecks 08/28/19 08/28/19 08/28/19 11:35 05:59 00:19 POC Glucose 288 H 234 H 325 H 08/27/19 08/27/19 16:57 11:59 POC Glucose 288 H 208 H Hospitalist ROS - Review of Systems Constitutional: denies: fever, chills - Medication Medications: Active Medications Generic Name Dose Route Start Last Admin Trade Name Freq PRN Reason Stop Dose Admin Acetaminophen 650 mg 08/24/19 20:41 08/24/19 21:37 Tylenol PO 650 mg Q4H PRN Administration Headache/Fever or Pain Famotidine 20 mg 08/26/19 09:00 08/28/19 09:03 Pepcid SLOW IVP 20 mg DAILY CEDRIC Administration Insulin Human Lispro 0 units 08/24/19 00:46 08/28/19 11:36 Humalog SC 4 unit .MILD SLIDING SCALE PRN Administration Mild Correctional Scale Lorazepam 2 mg 08/24/19 00:50 08/25/19 09:12 Ativan SLOW IVP 09/23/19 00:50 2 mg Q1H PRN Administration Breakthrough agitation Methylprednisolone Sodium Succinate 40 mg 08/26/19 18:00 08/28/19 05:51 Solu-Medrol IVP 40 mg 0600,1800 CEDRIC Administration Morphine Sulfate 2 mg 08/24/19 00:50 08/25/19 21:05 Morphine SLOW IVP 09/23/19 00:50 2 mg Q1H PRN Administration BREAKTHROUGH PAIN/Agitation Sodium Chloride 10 ml 08/24/19 09:00 08/28/19 11:38 Flush - Normal Saline IVF 10 ml Q12HR CEDRIC Administration Sodium Chloride 1 ml 08/25/19 15:00 08/28/19 09:35 [place] Nasal [place] 0.65% EA NARE 08/28/19 15:01 Not Given TID CEDRIC - Exam General Appearance: NAD, awake alert General - other findings: patient on vent machine, RR high 20's Eye: PERRL, anicteric sclera ENT: normocephalic atraumatic, no oropharyngeal lesions Neck: no JVD Heart: RRR, no murmur, no gallops, no rubs Respiratory - other findings: bilateral rales Gastrointestinal: soft, non-tender, non-distended Extremities: no cyanosis, no clubbing, no edema Skin: normal turgor, no lesions, no rashes Neurological: cranial nerve grossly intact, normal sensation to touch, no weakness Musculoskeletal: normal tone, normal strength, no muscle wasting Hosp A/P - Plan This is a 63 year old male with history of Pompeii disease on trachestomy who presented with SOB, admitted for pneumonia #Acute hypoxic respiratory failure secondary to pseudomonas pneumonia #History of Pompe disease #Leukocytosis - dowtnrending - sputum culture growing pseudomonas. It is showing resistance to cefepime. Clinically reports improved SOB and WBC improving, but still has persistent congestion. I will change antibiotic to IV meropenem - contniue IV steroids - continue vent for another day then wean to trach. Could possibly go to IMCU if respiratory rate improves and stable Anemia - Hb 11.6, stable Metabolic acidosis - resolved Code status: full code
[2019-08-28] MEDS ORDERED: hydrALAZINE 20 MG/ML VIAL SLOW IVP PRN ×2 (12:08→14:32)
--- NOTE | 2019-08-28 12:47 | PRG ---
DATE OF SERVICE: 08/28/2019 SUBJECTIVE: Mr. Hoffmann is doing well. He wants two things. The first one is to have his trach downsized at some point, so he can talk with the balloon down. The second thing was to make sure we gave him enough antibiotics to treat his pneumonia. OBJECTIVE: VITAL SIGNS: Blood pressure is 182/100, heart rate 83, respiratory rate in the high 20s. LUNGS: Clear. HEART: Regular rhythm. ABDOMEN: Soft. EXTREMITIES: Without edema. LABORATORY DATA: White count 13.1, hemoglobin 11.6, platelets 248. Sodium 140, potassium 3.6, chloride 110, bicarb 23, BUN , creatinine 0.74. Intake and output, positive 1660. IMPRESSION: 1. Chronic respiratory failure secondary to neuromuscular disease. 2. Aspiration pneumonia. 3. Status post inadvertent decannulation of his tracheostomy, requiring replacement with a #8 trach. It might be reasonable at some point to get him down to a #6 cuffed trach. At this point in time, he appears to be stable. Job ID: [id number]
[2019-08-28] MEDS: Meropenem 2 GM in Sodium Chloride 0.9% 100 ML IVPB SCH ×2 (14:05→21:13)
[2019-08-28] MEDS: Senokot S 8.6-50 MG TAB PO PRN (17:26)
[2019-08-28] MEDS: Insulin Glargine 9 UNITS in Pre-Filled Syringe 1 EACH SC SCH (21:14)
[2019-08-29] MEDS: HumaLOG 300 UNITS/3 ML VIAL SC PRN ×5 (00:18→20:49)
[2019-08-29] MEDS: Meropenem 2 GM in Sodium Chloride 0.9% 100 ML IVPB SCH ×3 (05:40→21:00)
[2019-08-29] MEDS: methylPREDNISolone Sod Succ 40 MG VIAL IVP SCH ×2 (05:42→17:01)
[2019-08-29 06:13] LABS: Anion Gap 11 mmol/L (10-20); BUN (Urea Nitrogen) 15 mg/dL (8.4-25.7); Calc. Creatinine Clearance 144 mL/min (70-130); Calcium 8.6 mg/dL (7.8-10.44); Carbon Dioxide 27 mmol/L (23-31); Chloride 106 mmol/L (98-107); Estimated GFR-MDRD Greater than 90; Glucose 231 mg/dL (80-115); Potassium 3.8 mmol/L (3.5-5.1); Sodium 140 mmol/L (136-145)
[2019-08-29 06:14] LABS: Hemoglobin 12.2 g/dL (14.0-18.0); Mean Corpuscular HGB CONC 33.1 g/dL (32.0-36.0); Mean Corpuscular Hemoglobin 28.1 pg (27.0-31.0); Mean Platelet Volume 9.7 fL (7.4-10.4); Platelet Count 221 thou/uL (130-400); RBC Distribution Width 14.7 % (11.5-14.5); Red Blood Cell (RBC) Count 4.34 mill/uL (4.70-6.10); White Blood Cell (WBC) Count 14.6 thou/uL (4.8-10.8)
[2019-08-29] MEDS: Famotidine/PF 20 mg/2ml Vial SLOW IVP SCH (08:28)
[2019-08-29] MEDS: Enoxaparin Sodium 40 MG/0.4 ML SYRINGE SC SCH (08:28)
[2019-08-29] MEDS: Guaifenesin DM 100-10/5 ML UDCUP PO SCH ×3 (08:35→21:00)
--- NOTE | 2019-08-29 09:01 | PRG ---
DATE OF SERVICE: 08/29/2019 SUBJECTIVE: Mr. Hoffmann complains that his tidal volumes are too low. He is also wanting to have his tracheostomy downsized from 8 to a 6. OBJECTIVE: VITAL SIGNS: His temperature is 99.5, pulse 65, blood pressure 147/75, O2 saturation 99%. Twenty-four intake 3304, output 3315. HEENT: Unremarkable. NECK: Tracheostomy in good position. LUNGS: Coarse breath sounds. CARDIAC: S1, S2. Regular. ABDOMEN: Soft. EXTREMITIES: No edema. LABORATORY DATA: White blood cell count 14.6, hematocrit 36.9, and platelet count 221. Sodium 140, potassium 3.8, chloride 106, CO2 of 27, BUN 15, creatinine 0.7, glucose 231. X-ray shows lower lobe atelectasis bilaterally. ASSESSMENT: 1. Aspiration pneumonia with Pseudomonas. 2. Chronic respiratory failure secondary to neuromuscular disease. 3. Status post inadvertent decannulation of his tracheostomy with subsequent replacement to size A trach. RECOMMENDATION: Dr. Cheatham will be back tomorrow. He can discuss with the patient whether or not it is appropriate to downsize the trach or not. We will continue him on the antibiotics. I will reduce his steroid dose. He should be ready for discharge soon. Job ID: [id number]
--- NOTE | 2019-08-29 10:24 | RAD ---
CHEST 1 VIEW: HISTORY: Respiratory insufficiency. COMPARISON: 08/28/2019. FINDINGS: Stable decreased inspiratory effort and bilateral lower lobe pleural and parenchymal opacity changes. IMPRESSION: Stable exam. Continued short-term followup. POS: [facility]
--- NOTE | 2019-08-29 11:09 | PDOC.HOSPP ---
- Subjective Encounter Date: 08/29/19 Encounter Time: 10:30 Subjective: The patient still reports some congestion in his chest and feels a ball of mucus in his chest. Breathing is about the same. - Objective Vital Signs & Weight: Vital Signs (12 hours) Temp Pulse Resp BP Pulse Ox 08/29/19 10:24 81 143/70 H 08/29/19 10:00 28 H 08/29/19 08:00 98.8 F 25 H 99 08/29/19 06:59 64 147/75 H 08/29/19 06:00 26 H 08/29/19 04:58 99.5 F 08/29/19 04:00 15 08/29/19 02:14 76 156/69 H 08/29/19 02:00 23 H 08/29/19 00:38 72 30 H 98 08/29/19 00:00 99.5 F 26 H Weight Admit Weight 201 lb 4.48 oz Weight 199 lb 12.8 oz Most Recent Monitor Data Heart Rate from ECG 72 NIBP 121/56 NIBP BP-Mean 77 Respiration from ECG 18 SpO2 98 I&O: 08/28/19 08/29/19 08/30/19 06:59 06:59 06:59 Intake Total 4020 3304 360 Output Total 2360 3315 325 Balance 1660 -11 35 Result Diagrams: 08/29/19 05:46 08/29/19 05:46 Additional Labs: Accuchecks 08/29/19 08/29/19 08/28/19 05:40 00:21 17:38 POC Glucose 224 H 301 H 373 H 08/28/19 11:35 POC Glucose 288 H Hospitalist ROS - Review of Systems Constitutional: denies: fever, chills - Medication Medications: Active Medications Generic Name Dose Route Start Last Admin Trade Name Freq PRN Reason Stop Dose Admin Acetaminophen 650 mg 08/24/19 20:41 08/24/19 21:37 Tylenol PO 650 mg Q4H PRN Administration Headache/Fever or Pain Albuterol/Ipratropium 3 ml 08/25/19 08:13 08/29/19 06:58 Duoneb NEB 3 ml [id number] PRN Administration SOB &/or Wheezing Enoxaparin Sodium 40 mg 08/29/19 09:00 08/29/19 08:28 Lovenox SC 40 mg 0900 CEDRIC Administration Famotidine 20 mg 08/26/19 09:00 08/29/19 08:28 Pepcid SLOW IVP 20 mg DAILY CEDRIC Administration Guaifenesin/Dextromethorphan 15 ml 08/29/19 09:00 08/29/19 08:35 Robitussin Dm PO 15 ml 0300,0900,1500,2100 CEDRIC Administration Hydralazine HCl 10 mg 08/28/19 14:32 08/28/19 17:29 Apresoline SLOW IVP 10 mg Q4H PRN Administration SBP Greater Than 180 Insulin Glargine 9 units/ 0.09 mls @ 0 mls/hr 08/28/19 21:00 08/28/19 21:14 Miscellaneous Medication SC 0.09 mls HS CEDRIC Administration Meropenem 2 gm/ Sodium 100 mls @ 100 mls/hr 08/28/19 14:00 08/29/19 05:40 Chloride IVPB 100 mls Q8HR CEDRIC Administration Insulin Human Lispro 0 units 08/24/19 00:46 08/29/19 05:45 Humalog SC 3 unit .MILD SLIDING SCALE PRN Administration Mild Correctional Scale Lorazepam 2 mg 08/24/19 00:50 08/25/19 09:12 Ativan SLOW IVP 09/23/19 00:50 2 mg Q1H PRN Administration Breakthrough agitation Morphine Sulfate 2 mg 08/24/19 00:50 08/25/19 21:05 Morphine SLOW IVP 09/23/19 00:50 2 mg Q1H PRN Administration BREAKTHROUGH PAIN/Agitation Senna/Docusate Sodium 1 tab 08/25/19 08:07 08/28/19 17:26 Senokot S PO 1 tab BIDPRN PRN Administration Constipation Sodium Chloride 10 ml 08/24/19 09:00 08/29/19 08:31 Flush - Normal Saline IVF 10 ml Q12HR CEDRIC Administration Sterile Water 1 ml 08/26/19 09:03 08/28/19 17:27 Bacteriostatic Water FS 1 ml PRN PRN Administration RECONSTITUTION - Exam General Appearance: NAD, awake alert Eye: PERRL, anicteric sclera ENT: normocephalic atraumatic, no oropharyngeal lesions Neck: no JVD Heart: RRR, no murmur, no gallops, no rubs Respiratory - other findings: diffuse rales bilaterally Gastrointestinal: soft, non-tender, non-distended Extremities: no cyanosis, no clubbing, no edema Hosp A/P - Plan This is a 63 year old male with 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 He received IV cefepime, culture was resistant to this. Switched to meropenem 08/27. WBC slightly increased to 14, will monitor - will order chest PT by respiratory TID - continue mucinex - contniue IV steroids Anemia - Hb 12.2 stable Metabolic acidosis - resolved Code status: full code
[2019-08-29] MEDS: Senokot S 8.6-50 MG TAB PO PRN (16:23)
[2019-08-29] MEDS ORDERED: Fleet Enema 133 ML BOT PR SCH (20:00)
[2019-08-29] MEDS: Insulin Glargine 9 UNITS in Pre-Filled Syringe 1 EACH SC SCH (20:49)
[2019-08-30] MEDS: Guaifenesin DM 100-10/5 ML UDCUP PO SCH ×3 (02:39→14:43)
[2019-08-30] MEDS: HumaLOG 300 UNITS/3 ML VIAL SC PRN ×5 (04:20→21:08)
[2019-08-30 05:26] LABS: Mean Corpuscular HGB CONC 33.7 g/dL (32.0-36.0); Mean Corpuscular Hemoglobin 28.7 pg (27.0-31.0); Mean Corpuscular Volume 85.1 fL (78.0-98.0); Mean Platelet Volume 10.4 fL (7.4-10.4); Platelet Count 228 thou/uL (130-400); RBC Distribution Width 14.5 % (11.5-14.5); Red Blood Cell (RBC) Count 4.18 mill/uL (4.70-6.10); White Blood Cell (WBC) Count 17.9 thou/uL (4.8-10.8)
[2019-08-30] MEDS: methylPREDNISolone Sod Succ 40 MG VIAL IVP SCH (05:30)
[2019-08-30] MEDS: Meropenem 2 GM in Sodium Chloride 0.9% 100 ML IVPB SCH (06:17)
--- NOTE | 2019-08-30 08:05 | RAD ---
Chest one view HISTORY: Dyspnea. Follow-up. COMPARISON: 08/29/2019. FINDINGS: Cardiac silhouette is magnified by projection and partially obscured by patchy opacity at e ach lung base and bilateral pleural fluid. Fluid has decreased slightly. Mediastinum is midline with tracheostomy appliance and a right upper extremity PICC. No evidence of pneumothorax. IMPRESSION : Slight interval decrease in radiographic degree of pleural fluid and bibasilar infiltrates. Findings are otherwise stable.
[2019-08-30] MEDS ORDERED: DC Sedation Protocol FS ONE (08:19)
--- NOTE | 2019-08-30 08:52 | PRG ---
DATE OF SERVICE: 08/30/2019 SUBJECTIVE: This morning, he is awake, alert, and responsive. He is complaining of shortness of breath. OBJECTIVE: VITAL SIGNS: resp 20 ,O2 saturations 100%, blood pressure 120\76 CHEST: Decreased breath sounds. No wheezing. CARDIAC: Normal S1, S2. No gallops. ABDOMEN: No masses. LABORATORY AND DIAGNOSTIC DATA: White count 17,000. Blood sugar 257. X-ray looks stable, elevated hemidiaphragm with nonspecific atelectatic change in the left lung. ASSESSMENT: 1. Pseudomonas, probably chronic colonization. 2. Neuromuscular disease, respiratory failure, permanent vent. 3. Congestion. PLAN: I am going to switch him to #6 cuffed trach. Hopefully, can be discharged home in the next several days. Switch him to oral medication. TIME SPENT: One-half hour of critical time. Job ID: [id number] MTDD
[2019-08-30] MEDS ORDERED: predniSONE 20 MG TAB PO SCH (09:00)
[2019-08-30] MEDS ORDERED: Ciprofloxacin 500 MG TAB PO SCH (09:00)
[2019-08-30] MEDS: Enoxaparin Sodium 40 MG/0.4 ML SYRINGE SC SCH (09:11)
[2019-08-30] MEDS: Famotidine/PF 20 mg/2ml Vial SLOW IVP SCH (09:11)
--- NOTE | 2019-08-30 10:21 | OP ---
DATE OF PROCEDURE: 08/30/2019 The patient wanted his #8 cuffed trach to be downsized. Therefore, a #6 cuffed [place] trach was replaced without any difficulty. He has tolerated that procedure well. We will try and switch him over to oral medication as noted. Hopefully, we can get him home in the next several days. Job ID: [id number]
--- NOTE | 2019-08-30 12:10 | PDOC.HOSPP ---
- Subjective Encounter Date: 08/30/19 Encounter Time: 12:09 Subjective: Pt reports feeling congested still. Per respiratory, they did chest PT this morning and yesterday. He reported some improvement with chest PT. SOB the same. Patient is eating [employer] donuts per nursing staff - Objective Vital Signs & Weight: Vital Signs (12 hours) Temp Pulse Resp BP Pulse Ox 08/30/19 11:18 74 142/60 H 08/30/19 10:00 25 H 08/30/19 08:00 98.9 F 27 H 97 08/30/19 07:21 73 21 H 100 08/30/19 07:20 71 21 H 100 08/30/19 07:16 74 122/59 L 08/30/19 06:00 14 08/30/19 05:33 98.5 F 08/30/19 04:00 13 08/30/19 03:04 99 08/30/19 03:00 99.1 F 08/30/19 02:17 65 155/89 H 08/30/19 02:00 18 Weight Admit Weight 201 lb 4.48 oz Weight 201 lb 4.513 oz Most Recent Monitor Data Heart Rate from ECG 79 NIBP 142/60 NIBP BP-Mean 87 Respiration from ECG 20 SpO2 97 I&O: 08/29/19 08/30/19 08/31/19 06:59 06:59 06:59 Intake Total 3304 2125 240 Output Total 3315 2590 415 Balance -11 -465 -175 Result Diagrams: 08/30/19 05:00 08/29/19 05:46 Additional Labs: Accuchecks 08/30/19 08/29/19 08/29/19 08:56 20:50 17:02 POC Glucose 206 H 257 H 356 H 08/29/19 11:14 POC Glucose 294 H Hospitalist ROS - Review of Systems Constitutional: denies: fever, chills - Medication Medications: Active Medications Generic Name Dose Route Start Last Admin Trade Name Freq PRN Reason Stop Dose Admin Acetaminophen 650 mg 08/24/19 20:41 08/24/19 21:37 Tylenol PO 650 mg Q4H PRN Administration Headache/Fever or Pain Albuterol/Ipratropium 3 ml 08/25/19 08:13 08/30/19 07:20 Duoneb NEB 3 ml [id number] PRN Administration SOB &/or Wheezing Enoxaparin Sodium 40 mg 08/29/19 09:00 08/30/19 09:11 Lovenox SC 40 mg 0900 CEDRIC Administration Famotidine 20 mg 08/26/19 09:00 08/30/19 09:11 Pepcid SLOW IVP 20 mg DAILY CEDRIC Administration Guaifenesin/Dextromethorphan 15 ml 08/29/19 09:00 08/30/19 09:11 Robitussin Dm PO 15 ml 0300,0900,1500,2100 CEDRIC Administration Hydralazine HCl 10 mg 08/28/19 14:32 08/28/19 17:29 Apresoline SLOW IVP 10 mg Q4H PRN Administration SBP Greater Than 180 Insulin Glargine 9 units/ 0.09 mls @ 0 mls/hr 08/28/19 21:00 08/29/19 20:49 Miscellaneous Medication SC 0.09 mls HS CEDRIC Administration Insulin Human Lispro 0 units 08/24/19 00:46 08/30/19 09:00 Humalog SC 3 unit .MILD SLIDING SCALE PRN Administration Mild Correctional Scale Lorazepam 2 mg 08/24/19 00:50 08/25/19 09:12 Ativan SLOW IVP 09/23/19 00:50 2 mg Q1H PRN Administration Breakthrough agitation Senna/Docusate Sodium 1 tab 08/25/19 08:07 08/29/19 16:23 Senokot S PO 1 tab BIDPRN PRN Administration Constipation Sodium Chloride 10 ml 08/24/19 09:00 08/30/19 09:22 Flush - Normal Saline IVF 10 ml Q12HR CEDRIC Administration Sodium Chloride 0 ml 08/25/19 10:26 08/29/19 16:15 [place] Nasal [place] 0.65% EA NARE 2 spray PRN PRN Administration Nasal Dryness/CONGESTION Sterile Water 1 ml 08/26/19 09:03 08/28/19 17:27 Bacteriostatic Water FS 1 ml PRN PRN Administration RECONSTITUTION - Exam General Appearance: NAD, awake alert Eye: PERRL, anicteric sclera ENT: normocephalic atraumatic, no oropharyngeal lesions Neck: no JVD Heart: RRR, no murmur, no gallops, no rubs Respiratory: CTAB Respiratory - other findings: slightly diminished breath sounds at the bases Gastrointestinal: soft, non-tender, non-distended, normal bowel sounds Extremities: no cyanosis, no clubbing, no edema Skin: normal turgor, no lesions, no rashes Neurological: cranial nerve grossly intact, normal sensation to touch, no focal deficits, no new deficit Hosp A/P - Plan This is a 63 year old male with 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 He received IV cefepime, culture was resistant to this. Switched to meropenem 08/27. WBC slightly increased to 17. Meropenem discontinued today by pulmonary and switched to cipro? - continue chest PT TID - switch mucinex to tablet form - switch to oral steroids - trach cuff was downsized today Anemia - Hb 12.2 stable Metabolic acidosis - resolved Code status: full code
[2019-08-30] MEDS ORDERED: Furosemide 40 MG/4 ML VIAL SLOW IVP SCH (12:15)
[2019-08-30] MEDS ORDERED: guaiFENesin ER 600 MG TAB PO SCH (12:30)
[2019-08-30 13:24] LABS: Anion Gap 12 mmol/L (10-20); BUN (Urea Nitrogen) 14 mg/dL (8.4-25.7); Calc. Creatinine Clearance 139 mL/min (70-130); Calcium 8.3 mg/dL (7.8-10.44); Carbon Dioxide 25 mmol/L (23-31); Chloride 104 mmol/L (98-107); Estimated GFR-MDRD Greater than 90; Glucose 274 mg/dL (80-115); Potassium 3.9 mmol/L (3.5-5.1); Sodium 137 mmol/L (136-145)
[2019-08-30] MEDS: guaiFENesin ER 600 MG TAB PO SCH (21:00)
[2019-08-30] MEDS: Ciprofloxacin 500 MG TAB PO SCH (21:00)
[2019-08-30] MEDS: Insulin Glargine 9 UNITS in Pre-Filled Syringe 1 EACH SC SCH (21:07)
[2019-08-31] MEDS: HumaLOG 300 UNITS/3 ML VIAL SC PRN ×5 (06:36→20:12)
[2019-08-31 07:51] LABS: Hemoglobin 12.6 g/dL (14.0-18.0); Mean Corpuscular Hemoglobin 28.3 pg (27.0-31.0); Mean Corpuscular Volume 85.7 fL (78.0-98.0); Platelet Count 292 thou/uL (130-400); RBC Distribution Width 14.7 % (11.5-14.5); Red Blood Cell (RBC) Count 4.45 mill/uL (4.70-6.10); White Blood Cell (WBC) Count 16.6 thou/uL (4.8-10.8)
[2019-08-31 07:55] LABS: Anion Gap 10 mmol/L (10-20); BUN (Urea Nitrogen) 15 mg/dL (8.4-25.7); Calc. Creatinine Clearance 145 mL/min (70-130); Calcium 8.1 mg/dL (7.8-10.44); Carbon Dioxide 32 mmol/L (23-31); Chloride 101 mmol/L (98-107); Estimated GFR-MDRD Greater than 90; Glucose 211 mg/dL (80-115); Potassium 3.2 mmol/L (3.5-5.1); Sodium 140 mmol/L (136-145)
--- NOTE | 2019-08-31 08:28 | PRG ---
DATE OF SERVICE: SUBJECTIVE: This is a 63-year-old gentleman, who is on home vent, is doing well. We downsized his trach to a #6 cuffed. OBJECTIVE: VITAL SIGNS: Pulse 77, blood pressure 164/65, . CHEST: Decreased breath sounds. No wheezing. CARDIAC: Normal S1 and S2. No gallops. ABDOMEN: No masses. LABORATORY DATA: Unremarkable. DIAGNOSTIC DATA: X-ray, stable. IMPRESSION: Acute on chronic respiratory failure. PLAN: P.o. antibiotics. We are trying to find his home vent. Once that is available, he will be placed on his home vent and transferred home. Otherwise, continue basic supportive care and PT as tolerated. One-half hour of critical time. Job ID: [id number]
[2019-08-31] MEDS: Famotidine/PF 20 mg/2ml Vial SLOW IVP SCH (08:43)
[2019-08-31] MEDS: predniSONE 20 MG TAB PO SCH (08:44)
[2019-08-31] MEDS: Ciprofloxacin 500 MG TAB PO SCH ×2 (08:45→20:10)
[2019-08-31] MEDS: Enoxaparin Sodium 40 MG/0.4 ML SYRINGE SC SCH (08:45)
[2019-08-31] MEDS: guaiFENesin ER 600 MG TAB PO SCH ×2 (08:45→20:10)
[2019-08-31] MEDS ORDERED: Potassium Chloride 20 MEQ TAB PO SCH (09:45)
[2019-08-31 10:40] VITALS: BMI 27.2
--- NOTE | 2019-08-31 11:56 | RAD ---
CHEST 1 VIEW: INDICATION: History of daily CCU examination. COMPARISON: Prior exam dated 08/30/2019. IMPRESSION: Bibasilar opacities persist. Cardiomegaly is similar-appearing. Right-sided PICC line and tracheost charly tube are unchanged. No pneumothorax is evident. IMPRESSION: Stable examination. POS: BH
[2019-08-31 16:33] VITALS: BP 133/65
--- NOTE | 2019-08-31 18:23 | PDOC.HOSPP ---
- Subjective Encounter Date: 08/31/19 Encounter Time: 08:00 Subjective: The patient is doing better. REports congestion has improved. 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 States chest PT has helped. - Objective Vital Signs & Weight: Vital Signs (12 hours) Temp Pulse Resp BP Pulse Ox 08/31/19 16:31 63 133/65 08/31/19 16:00 24 H 08/31/19 15:00 98.8 F 08/31/19 14:00 21 H 08/31/19 12:30 64 19 96 08/31/19 12:00 23 H 08/31/19 11:00 98.6 F 08/31/19 10:41 76 114/62 08/31/19 10:00 19 08/31/19 08:00 26 H 97 08/31/19 07:05 66 112/62 08/31/19 07:04 64 11 L 97 08/31/19 07:03 65 11 L 97 08/31/19 07:00 98.8 F Weight Admit Weight 201 lb 4.48 oz Weight 194 lb 10.691 oz Most Recent Monitor Data Heart Rate from ECG 72 NIBP 125/59 NIBP BP-Mean 81 Respiration from ECG 20 SpO2 99 I&O: 08/30/19 08/31/19 09/01/19 06:59 06:59 06:59 Intake Total 2125 1806 980 Output Total 2590 5155 925 Balance -465 -6125 55 Result Diagrams: 08/31/19 07:23 08/31/19 07:23 Additional Labs: Accuchecks 08/31/19 08/31/19 08/31/19 17:05 11:43 07:32 POC Glucose 277 H 241 H 171 H 08/31/19 08/30/19 06:35 21:09 POC Glucose 221 H 354 H Hospitalist ROS - Review of Systems Constitutional: denies: fever, chills - Medication Medications: Active Medications Generic Name Dose Route Start Last Admin Trade Name Freq PRN Reason Stop Dose Admin Acetaminophen 650 mg 08/24/19 20:41 08/24/19 21:37 Tylenol PO 650 mg Q4H PRN Administration Headache/Fever or Pain Albuterol/Ipratropium 3 ml 08/25/19 08:13 08/31/19 07:03 Duoneb NEB 3 ml [id number] PRN Administration SOB &/or Wheezing Ciprofloxacin 500 mg 08/30/19 20:00 08/31/19 08:45 Cipro PO 09/04/19 20:01 500 mg 0600,2000 CEDRIC Administration Enoxaparin Sodium 40 mg 08/29/19 09:00 08/31/19 08:45 Lovenox SC 40 mg 0900 CEDRIC Administration Famotidine 20 mg 08/26/19 09:00 08/31/19 08:43 Pepcid SLOW IVP 20 mg DAILY CEDRIC Administration Guaifenesin 600 mg 08/30/19 21:00 08/31/19 08:45 Mucinex PO 600 mg Q12HR CEDRIC Administration Hydralazine HCl 10 mg 08/28/19 14:32 08/28/19 17:29 Apresoline SLOW IVP 10 mg Q4H PRN Administration SBP Greater Than 180 Insulin Glargine 9 units/ 0.09 mls @ 0 mls/hr 08/28/19 21:00 08/30/19 21:07 Miscellaneous Medication SC 0.09 mls HS CEDRIC Administration Insulin Human Lispro 0 units 08/24/19 00:46 08/31/19 17:06 Humalog SC 4 unit .MILD SLIDING SCALE PRN Administration Mild Correctional Scale Prednisone 20 mg 08/31/19 08:00 08/31/19 08:44 Prednisone PO 09/05/19 08:01 20 mg QAM-WM CEDRIC Administration Senna/Docusate Sodium 1 tab 08/25/19 08:07 08/29/19 16:23 Senokot S PO 1 tab BIDPRN PRN Administration Constipation Sodium Chloride 10 ml 08/24/19 09:00 08/31/19 08:45 Flush - Normal Saline IVF 10 ml Q12HR CEDRIC Administration Sodium Chloride 0 ml 08/25/19 10:26 08/29/19 16:15 [place] Nasal [place] 0.65% EA NARE 2 spray PRN PRN Administration Nasal Dryness/CONGESTION Sterile Water 1 ml 08/26/19 09:03 08/28/19 17:27 Bacteriostatic Water FS 1 ml PRN PRN Administration RECONSTITUTION - Exam General Appearance: NAD, awake alert Eye: PERRL, anicteric sclera ENT: normocephalic atraumatic, no oropharyngeal lesions Neck: no JVD Heart: RRR, no murmur, no gallops, no rubs Respiratory - other findings: slightly diminished breath sounds at base. 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 He received IV cefepime, culture was resistant to this. Switched to meropenem 08/27. WBC slightly increased to 17. Meropenem discontinued today by pulmonary and switched to cipro for five days - continue oral steroids - continue chest PT TID. Continue mucinex - trach cuff was downsized 08/30 - switch to home vent - ECHO was done which was normal Anemia - Hb 12.2 stable Metabolic acidosis - resolved Dispo: likely d/c home tomorrow Code status: full code
[2019-08-31] MEDS: Insulin Glargine 9 UNITS in Pre-Filled Syringe 1 EACH SC SCH (20:10)
[2019-09-01] MEDS: HumaLOG 300 UNITS/3 ML VIAL SC PRN ×2 (06:21→11:14)
[2019-09-01] MEDS: predniSONE 20 MG TAB PO SCH (08:51)
[2019-09-01] MEDS: guaiFENesin ER 600 MG TAB PO SCH (08:51)
[2019-09-01] MEDS: Enoxaparin Sodium 40 MG/0.4 ML SYRINGE SC SCH (08:51)
--- NOTE | 2019-09-01 09:44 | PRG ---
DATE OF SERVICE: 09/01/2019 SUBJECTIVE: Charlie Hoffmann this morning is awake, responsive, back on his home vent without any distress. OBJECTIVE: VITAL SIGNS: Temperature 98, , saturations are 90%, respiratory rate 18, afebrile. GENERAL: He is eating his breakfast without any issues. He has a #6 trach with inner cannula. He is eager to go home. He would rather have the Levaquin rather than Cipro. I told him more than likely this is all colonization. CHEST: Decreased breath sounds. No wheezing. CARDIAC: Normal S1, S2. ABDOMEN: No masses. ASSESSMENT: 1. Neuromuscular disease accounting for respiratory failure. 2. Abnormal x-ray bilaterally, elevated right hemidiaphragm. 3. Previous decannulation, had to be reinserted again by surgery. He is plan to go home any time, follow up with his primary care physician. He says an ENT physician is changing his trach every 6 months. Job ID: [id number]
[2019-09-01 13:21] VITALS: TEMP 98.4
--- NOTE | 2019-09-01 20:03 | DIS ---
DATE OF ADMISSION: 08/24/2019 DATE OF DISCHARGE: 09/01/2019 DISCHARGE DIAGNOSES: 1. Acute hypoxic respiratory failure secondary to Pseudomonas pneumonia 2. History of Pompe disease 3. Leukocytosis 4. Anemia 5. Metabolic acidosis. CONSULTATIONS: 1. Dr. Antony Cheatham with Critical Care and Dr. David Lucero with Critical Care. 2. Dr. Herbie Francis with general surgery PROCEDURES: 1. Percutaneous tracheostomy tube placement on 08/23, size [address] Herbie Francis. 2. Bronchoscopy and lavage, 08/24, that was done by Dr. Antony Cheatham. 3. Downsizing of trach from #8 to #6 on 08/29. BRIEF HISTORY OF PRESENT ILLNESS: This is a 63-year-old male with past medical history of Pompe disease with chronic trach, who presented to the emergency room with acute on chronic shortness of breath. His oxygen saturation was 70% and he needed Q-tip to clear his airway. When the patient went to the emergency room in [facility], he required CPR and epinephrine and was transferred here. The patient's trach was a non-cuffed trach. It was removed in [facility] and the patient was intubated orally prior to transfer. The patient did have a 7 cm ET tube into the trach opening and was doing well with that. There were failed attempts at placing a cuffed trach. He was not ventilating well, was hypotensive to 80's, tachycardic with HR of 126, and required pressors. WBC was 31.8. The patient was started on broad spectrum antibiotics and admitted to the ICU for further workup. HOSPITAL COURSE: 1. Acute hypoxic respiratory failure secondary to Pseudomonas pneumonia: The patient was initially started on vancomycin and cefepime. His blood cultures grew 1/2 presumptive Corynebacterium. Urine culture was negative. He His white blood cell count downtrended to 13.1 on the th with IV cefepime. General surgery placed a trach on 08/[address] Cheatham performed a bronchoscopy on 08/24 which showed a moderate amount of bloody secretion. His right upper, right middle, and right lower lobe had abundant mucoid secretions. Vancomycin was discontinued and he was on cefepime monotherapy from 08/25 -08/27. Due to persistent congestion, he was switched to meropenem since his Pseudomonas sputum culture showed resistance to cefepime. He received meropenem until 08/29. Due to persistent congestion he received one dose of IV lasix, and underwent chest physiotherapy TID with improvement. ECHO showed a normal EF. His trach was downsized to a 6 on 08/[address] Cheatham. WBC increased to 18, so he was switched to oral ciprofloxacin on 08/29 by pulmonary, however on discharge was switched to levaquin. He will be discharged with Levaquin for an additional 5 days. He was also discharged with 5 days of oral steroids. He should follow up with Dr. Cheatham in 3 weeks and his ENT doctors for re-evaluation of his trach. 2. Hypokalemia: The patient's potassium was 3.2 on . He was given 40 mg of potassium. He refused labs on the day of discharge. He ws advised to get a repeat potassium in a week. DISCHARGE PHYSICAL EXAMINATION: VITAL SIGNS: Temp 98.4, HR 75, RR 17, O2 saturation 96% on room air, and blood pressure 112/62. GENERAL: The patient is alert, awake, and oriented x3. CVS: Regular rate and rhythm with no murmurs, rubs, or gallops. LUNGS: Diminished breath sounds, but no crackles. ABDOMEN: Positive bowel sounds, soft, nontender, nondistended. EXTREMITIES: No edema. PERTINENT LABORATORY DATA: CBC on 08/30: White count 16.6, hemoglobin 12.6, hematocrit 38.1, platelet count 292. BMP on 08/30: Unremarkable except for potassium of 3.2. Lactic acid on 08/22: 2.6. Lactic acid on 08/23: 3.1. Magnesium: 2.1. Procal: 9.84. UA: 11 - 20 white blood cells, 200 protein, 20 ketones, 1+ blood. COVID PCR on 08/22: negative. Urine culture on 08/22: No growth. Blood culture on 08/22: Shows 1 out of 2 presumptive Corynebacterium. Respiratory culture on 08/24: Shows Pseudomonas aeruginosa. IMAGING: Chest x-ray on 08/22: Shows interval decrease in gastric distention. Worsening opacification of the lung parenchyma. Chest x-ray on 08/23: Bilateral infiltrates. Improved aeration in the left lung. Chest x-ray on 08/24: No significant interval change. Chest x-ray on 08/30: Bibasilar opacities persist. Cardiomegaly is persistent. Echo on 08/30: EF 55% to 60%, structurally normal aortic valve. Mild TR. DISCHARGE CONDITION: Stable. ACTIVITY: As tolerated. DIET: Heart healthy diet. DISCHARGE MEDICATIONS: New prescriptions: 1. Levaquin 500 mg p.o. daily. 2. Prednisone 20 mg p.o. daily, quantity 5. All other home medications were resumed. DISCHARGE INSTRUCTIONS: The patient should follow up with his PCP in a week. He should have a repeat chest x-ray in 6 weeks. He should follow up with Dr. Cheatham in 1 week and his PCP in a week. He should take Levaquin for an additional 5 days. He should follow up with his oncologist at 9:45 a.m. next Thursday on 09/05. Job ID: [id number] MTDD
== END 2019-09-01 13:00 | disposition home or self-care (01) | DRG 4 ==
LOC: ERS 21:15 → CCU 08-24 01:20
PROVIDERS: ADMIT Internal Medicine; ATTEND Internal Medicine
PROC: 0B113F4 Bypass Trachea to Cutaneous with Tracheostomy Device, Percutaneous Approach (ICD-10-PCS; principal; 2019-08-24)
PROC: 5A1955Z Respiratory Ventilation, Greater than 96 Consecutive Hours (ICD-10-PCS; 2019-08-24)
PROC: 3E033XZ Introduction of Vasopressor into Peripheral Vein, Percutaneous Approach (ICD-10-PCS; 2019-08-24)
PROC: 0B9M8ZX Drainage of Bilateral Lungs, Via Natural or Artificial Opening Endoscopic, Diagnostic (ICD-10-PCS; 2019-08-25)
PROC: 0B918ZZ Drainage of Trachea, Via Natural or Artificial Opening Endoscopic (ICD-10-PCS; 2019-08-25)
PROC: 0BW1XFZ Revision of Tracheostomy Device in Trachea, External Approach (ICD-10-PCS; 2019-08-30)
DX: A41.9 Sepsis, unspecified organism (principal); J96.01 Acute respiratory failure with hypoxia; J15.1 Pneumonia due to Pseudomonas; J69.0 Pneumonitis due to inhalation of food and vomit; E87.2 Acidosis; J95.03 Malfunction of tracheostomy stoma; Z16.29 Resistance to other single specified antibiotic; Z20.828 Contact with and (suspected) exposure to other viral communicable diseases; E87.6 Hypokalemia; D64.9 Anemia, unspecified; E11.9 Type 2 diabetes mellitus without complications; I95.9 Hypotension, unspecified; G70.9 Myoneural disorder, unspecified; Y83.3 Surgical operation with formation of external stoma as the cause of abnormal reaction of the patient, or of later complication, without mention of misadventure at the time of the procedure
CPT/HCPCS: 31500; 31502; 36415; 36416; 36556; 51702; 71045; 80048; 80202; 81003; 81015; 82805; 83605; 83735; 84145; 85025; 85027; 87040; 87070; 87077; 87086; 87186; 87205; 87635; 93306; 94002; 94003; 94640; 94667; 94668; 96365; 96366; 96368; 96375; 96376; J0171; J0360; J0692; J1650; J1815; J1940; J2060; J2185; J2250; J2270; J2543; J2920; J2930; J3010; J3370; J3490; J7050; J7512; J7620; S0028; U0003